=== PATIENT | female | born 1955 | race Caucasian/White ===

== ENCOUNTER 2016-12-25 14:43 | Inpatient (IN) ==
[2016-12-25] MEDS ORDERED: methylPREDNISolone 125 MG/2 ML VIAL IVP ONE (14:56)
[2016-12-25] MEDS ORDERED: 0.9 % Sodium Chloride 1,000 ML IVC ONE ×2 (14:56→15:34)
[2016-12-25] MEDS ORDERED: Ipratropium/Albuterol Neb 3 ML IH ONE (14:56)
--- NOTE | 2016-12-25 15:02 | Emergency Department Note ---
Disposition Clinical Impression: Acute exacerbation of chronic obstructive airways disease, HCAP (healthcare- associated pneumonia), ST segment changes on electrocardiogram Asthma with exacerbation Qualifiers: Asthma severity: unspecified severity Asthma persistence: persistent Qualified Code(s): J45.901 - Unspecified asthma with (acute) exacerbation Disposition: Admitted As Inpatient Condition: Fair Referrals: Frederick Lopez MD [Primary Care Provider] - Forms: ED Satisfaction Letter Time of Disposition: 16:52 General Adult HPI - General Chief complaint: ED Shortness of Breath/Dyspnea Stated complaint: [facility] Source: patient, EMS Limitations: no limitations Nursing Notes Reviewed: Yes Vital Signs Reviewed: Yes - History of Present Illness HPI Narrative: 61-year-old female past medical history of asthma, recent cessation of smoking, this emergent department with shortness of breath, coughing, wheezing that has been occurring over the last week. Patient states that she has been using her inhaler over and over again, steroids, and that this has not been improving. Patient states that she has been around other people with pneumonia, but does not specifically have any sputum production or fever. Patient states that she does not have any history of blood clots. She denies any hemoptysis, recent travel, leg swelling. Pain Scale: 0 - Related Data Home Medications Medication Instructions Recorded Confirmed Levothyroxine [Synthroid] 25 mcg PO 0630 09/28/15 12/25/16 Pregabalin [Lyrica] 100 mg PO BID 09/28/15 12/25/16 Tramadol HCl [Ultram] 100 mg PO BID 09/28/15 12/25/16 Multivitamin [Multivitamins] 1 each PO DAILY 08/21/16 12/25/16 amLODIPine [Norvasc] 10 mg PO DAILY 08/21/16 12/25/16 Albuterol Sulfate [Proair Hfa] 2 puff IH Q4H PRN 12/25/16 12/25/16 Amantadine [Symmetrel] 100 mg PO TID 12/25/16 12/25/16 Calcium Carbonate/Vitamin D3 1 each PO DAILY 12/25/16 12/25/16 [Calcium 500-Vit D3 200 Tablet] Cholecalciferol (D-3) [Vitamin D] 1,000 unit PO DAILY 12/25/16 12/25/16 Colesevelam HCl [Welchol] 3.75 gm PO BID 12/25/16 12/25/16 Guaifenesin [Mucinex] 600 mg PO BID 12/25/16 12/25/16 Ipratropium/Albuterol Neb [Duoneb] 3 ml IH Q4H PRN 12/25/16 12/25/16 [place]-3/Dha/Epa/Fish Oil [Fish Oil 1,000 mg PO DAILY 12/25/16 12/25/16 1,000 mg Softgel] Simvastatin [Zocor] 10 mg PO HS 12/25/16 12/25/16 hydroCHLOROthiazide 25 mg PO DAILY 12/25/16 12/25/16 [Hydrochlorothiazide] predniSONE [PredniSONE] See Taper PO DAILY 12/25/16 12/25/16 Allergies Allergy/AdvReac Type Severity Reaction Status Date / Time ceftriaxone [From Rocephin] Allergy Rash Verified 09/28/15 17:09 Penicillins [PCN] Allergy Rash Verified 09/28/15 17:09 All systems ED: reviewed and negative except as stated. Review of Systems: As Per HPI Constitutional: Denies: fever Cardiovascular: Denies: chest pain Respiratory: Reports: cough, dyspnea, wheezes Gastrointestinal: Denies: nausea, vomiting Integumentary: Denies: rash Neurological: Denies: headache Past Medical History - Past Medical History Medical history: Reports: asthma, hyperlipidemia, hypertension, other Surgical history: Reports: hysterectomy, other Psychiatric history: Reports: anxiety, depression - Social History Smoking Status: Former smoker Smokeless Tobacco Status: No Alcohol use: Reports: none Drug use: Reports: none Physical Exam General: Well Appearing, in no acute distress Head: autraumatic, EOMI, no conjuncitval pallor, no scleral icterus, Mouth: oral mucous membranes moist Neck: neck soft, trachea midline Chest:: Equal chest wall rise Lungs: Diffuse wheezes throughout, no respiratory distress Heart: normal heart sounds, normal rate and rhythm, Abdomen: soft, non-tender, no rigidity, no guarding, no rebdound tenderness Lower Extremities: no pedal edema, calves non-tender Integumentary: Skin warm, dry, and intact Neuro: Alert Psych: normal affect, normal mood - General Limitations: no limitations General appearance: alert Course Vital Signs Temperature 98.5 F 12/25/16 14:44 Pulse Rate 124 12/25/16 14:44 Respiratory Rate 30 12/25/16 14:44 Blood Pressure 152/84 12/25/16 14:44 O2 Sat by Pulse Oximetry 92 12/25/16 14:44 Temperature 98.5 F 12/25/16 14:44 Pulse Rate 124 12/25/16 14:44 Respiratory Rate 24 12/25/16 15:10 Blood Pressure 164/86 12/25/16 15:37 O2 Sat by Pulse Oximetry 99 12/25/16 15:10 Oxygen Delivery Oxygen Delivery Room Air Medical Decision Making - MDM Narrative Medical decision making narrative: 61-year-old female presents to emergency department with what she thinks is worsening of her asthma. At this time, we are treating her as an asthma exacerbation. We are administering 3 duo nebs, Solu-Medrol the IV, liter normal saline and she is tachycardic here. Patient is currently 92% on room air. We are going to give her some oxygen. We obtained chest x-ray, EKG, troponin as well. Patient states that a DuoNeb to have helped out, but she still seems to be in mild respiratory distress. He is still have rhonchi throughout. Patient does have a leukocytosis of of about 24,000. This is higher than previous ones. Patient is on steroids chronically, but there is a left shift which would further indicate that this could be an acute infectious process. Portable chest x-ray did not reveal any signs of pneumonia, but does appear to be some haziness especially in the right middle and lower lobes. At this time, I will begin treatment with Levaquin, vancomycin, aztreonam. I have also given her 2 g of magnesium. Patient was given 2 L of normal saline per sepsis protocol as she met SIRS criteria with a tachycardia of 124 and leukocytosis of 23.9. I discussed the plan with the patient to admit her. She agrees with her. I spoke with the hospitalist on the phone and they agree as well. Patient is currently hemodynamically stable at this time and her respiratory process has improved. Vital Signs Temperature 98.5 F 12/25/16 14:44 Pulse Rate 124 12/25/16 14:44 Respiratory Rate 30 12/25/16 14:44 Blood Pressure 152/84 12/25/16 14:44 O2 Sat by Pulse Oximetry 92 12/25/16 14:44 Temperature 98.5 F 12/25/16 14:44 Pulse Rate 124 12/25/16 14:44 Respiratory Rate 30 12/25/16 14:44 Blood Pressure 152/84 12/25/16 14:44 O2 Sat by Pulse Oximetry 92 12/25/16 14:44 Oxygen Delivery Oxygen Delivery Room Air - Medical Records Medical records reviewed: Yes I reviewed the patient's medical records. - Lab Data Lab results reviewed: Yes I reviewed the patient's lab results. Result diagrams: 12/25/16 15:03 12/25/16 15:03 Lab Results 12/25/16 12/25/16 12/25/16 Range/Units 15:03 15: 15:03 WBC 23.9 H (4.3-11.1) K/mcL RBC 5.04 H (3.82-4.97) M/mcL Hgb 14.1 (11.5-15.4) g/dL Hct 45.1 H (35.3-44.9) % MCV 89.5 (83.0-100.0) fL MCH 28.0 (28.0-33.3) pg MCHC 31.3 L (31.6-35.5) g/dL RDW 15.5 H (11.5-14.5) % Plt Count 394 (140-400) K/mcL MPV 9.9 (9.4-12.4) fL Immature Gran % 0.8 (0-4) % Seg Neutrophils % 91.2 % Lymphocytes % 6.2 % Monocytes % 1.6 % Eosinophils % 0.0 % Basophils % 0.2 % Neutrophils # 21.8 H (1.6-8.9) K/mcL Lymphocytes # 1.5 (0.6-4.6) K/mcL Monocytes # 0.4 (0.0-1.3) K/mcL Eosinophils # 0.0 (0.0-0.6) K/mcL Basophils # 0.1 (0.0-0.2) K/mcL Hypersegmented Neuts Present A (Not Present) Platelet Estimate Normal (Normal) PT (9.4-12.1) Seconds INR Sodium 142 (136-145) mEq/L Potassium 3.5 (3.5-4.5) mEq/L Chloride 106 (98-109) mEq/L Carbon Dioxide 22 (19-29) mEq/L BUN 18 (7-20) mg/dL Creatinine 0.93 (0.57-1.11) mg/dL Est GFR ( Amer) > 60 (> 60) Est GFR (Non-Af Amer) > 60 (> 60) BUN/Creatinine Ratio 19 (6-26) Glucose 170 H (70-99) mg/dL Calculated Osmolality 300 (280-300) Lactic Acid (0.5-2.2) mmol/L Calcium 10.9 H (8.6-10.8) mg/dL Phosphorus (2.3-4.7) mg/dL Magnesium (1.6-2.6) mg/dL Troponin I 0.02 (0-0.03) ng/mL B-Natriuretic Peptide (0-100) pg/mL 12/25/16 12/25/16 12/25/16 Range/Units 15:03 16:08 16:08 WBC (4.3-11.1) K/mcL RBC (3.82-4.97) M/mcL Hgb (11.5-15.4) g/dL Hct (35.3-44.9) % MCV (83.0-100.0) fL MCH (28.0-33.3) pg MCHC (31.6-35.5) g/dL RDW (11.5-14.5) % Plt Count (140-400) K/mcL MPV (9.4-12.4) fL Immature Gran % (0-4) % Seg Neutrophils % % Lymphocytes % % Monocytes % % Eosinophils % % Basophils % % Neutrophils # (1.6-8.9) K/mcL Lymphocytes # (0.6-4.6) K/mcL Monocytes # (0.0-1.3) K/mcL Eosinophils # (0.0-0.6) K/mcL Basophils # (0.0-0.2) K/mcL Hypersegmented Neuts (Not Present) Platelet Estimate (Normal) PT 9.9 (9.4-12.1) Seconds INR 0.9 Sodium (136-145) mEq/L Potassium (3.5-4.5) mEq/L Chloride (98-109) mEq/L Carbon Dioxide (19-29) mEq/L BUN (7-20) mg/dL Creatinine (0.57-1.11) mg/dL Est GFR ( Amer) (> 60) Est GFR (Non-Af Amer) (> 60) BUN/Creatinine Ratio (6-26) Glucose (70-99) mg/dL Calculated Osmolality (280-300) Lactic Acid 3.2 H (0.5-2.2) mmol/L Calcium (8.6-10.8) mg/dL Phosphorus (2.3-4.7) mg/dL Magnesium (1.6-2.6) mg/dL Troponin I (0-0.03) ng/mL B-Natriuretic Peptide 91 (0-100) pg/mL 12/25/16 Range/Units 16:08 WBC (4.3-11.1) K/mcL RBC (3.82-4.97) M/mcL Hgb (11.5-15.4) g/dL Hct (35.3-44.9) % MCV (83.0-100.0) fL MCH (28.0-33.3) pg MCHC (31.6-35.5) g/dL RDW (11.5-14.5) % Plt Count (140-400) K/mcL MPV (9.4-12.4) fL Immature Gran % (0-4) % Seg Neutrophils % % Lymphocytes % % Monocytes % % Eosinophils % % Basophils % % Neutrophils # (1.6-8.9) K/mcL Lymphocytes # (0.6-4.6) K/mcL Monocytes # (0.0-1.3) K/mcL Eosinophils # (0.0-0.6) K/mcL Basophils # (0.0-0.2) K/mcL Hypersegmented Neuts (Not Present) Platelet Estimate (Normal) PT (9.4-12.1) Seconds INR Sodium (136-145) mEq/L Potassium (3.5-4.5) mEq/L Chloride (98-109) mEq/L Carbon Dioxide (19-29) mEq/L BUN (7-20) mg/dL Creatinine (0.57-1.11) mg/dL Est GFR ( Amer) (> 60) Est GFR (Non-Af Amer) (> 60) BUN/Creatinine Ratio (6-26) Glucose (70-99) mg/dL Calculated Osmolality (280-300) Lactic Acid (0.5-2.2) mmol/L Calcium (8.6-10.8) mg/dL Phosphorus 2.4 (2.3-4.7) mg/dL Magnesium 2.0 (1.6-2.6) mg/dL Troponin I (0-0.03) ng/mL B-Natriuretic Peptide (0-100) pg/mL - Radiology Data Radiology results reviewed: Yes I reviewed the patient's radiology results. - EKG Data EKG #1 EKG attestation: Yes I reviewed and interpreted this EKG. EKG results narrative: 15:08 Ventricular rate 106 bpm, WI interval 149 ms, QRS duration 97 ms, QT 366 ms, QTC 428 ms, left axis deviation. Sinus tachycardia with a ventricular rate of 106 bpm. There is [address] segment depression in leads 2, V5, V6 with T-wave inversions. This is new in comparison with a previous study performed on July 06, 2016.
[2016-12-25 15:11] LABS: Basophils # 0.1 K/mcL (0.0-0.2); Basophils % 0.2 %; Hematocrit 45.1 % (35.3-44.9); Hemoglobin 14.1 g/dL (11.5-15.4); Immature Granulocytes % 0.8 % (0-4); Lymphocytes # 1.5 K/mcL (0.6-4.6); Lymphocytes % 6.2 %; Mean Corpuscular HGB Conc 31.3 g/dL (31.6-35.5); Mean Corpuscular Volume 89.5 fL (83.0-100.0); Mean Platelet Volume 9.9 fL (9.4-12.4); Monocytes # 0.4 K/mcL (0.0-1.3); Monocytes % 1.6 %; Neutrophils # 21.8 K/mcL (1.6-8.9); Platelet Count 394 K/mcL (140-400); Red Blood Count 5.04 M/mcL (3.82-4.97); Red Cell Distribution Width 15.5 % (11.5-14.5); Segmented Neutrophils % 91.2 %
[2016-12-25 15:24] LABS: BUN/Creatinine Ratio 19 (6-26); Blood Urea Nitrogen 18 mg/dL (7-20); Calcium 10.9 mg/dL (8.6-10.8); Carbon Dioxide 22 mEq/L (19-29); Chloride 106 mEq/L (98-109); Glucose 170 mg/dL (70-99); Osmolality,Calculated 300 (280-300); Potassium 3.5 mEq/L (3.5-4.5); Sodium 142 mEq/L (136-145); eGFR For African Americans > 60 (> 60); eGFR For Non-African Americans > 60 (> 60)
[2016-12-25] MEDS ORDERED: Vancomycin 1,000 MG in D5% in Water 250 ML IVPB ONE (15:36)
[2016-12-25] MEDS ORDERED: Levofloxacin 750 MG/150 ML 750 MG/150 ML BAG IVPB ONE (15:36)
[2016-12-25] MEDS ORDERED: Aztreonam 2,000 MG in Water for inj. (sterile) 20 ML IVP ONE (15:36)
--- NOTE | 2016-12-25 15:51 | Emergency Department Note ---
START Narrative - START START: I examined this patient and my medical decision-making was reviewed with the Resident Physician. I agree with the documented findings, disposition and treatment plan as described except to the extent set forth below. 61 year old female presnts to the eD iwith complaints of bronchitic cough and is trying to move sputum up but it is stuck inher throat. 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 Initillyl she was dyspniec with a pulse ox of 92% on RA and states that she feels like she has wheezes. on lung examination bronchospams are present when she is coughin. She has been a 2-3 courses of steroids at home over the past three weeks and it is not improving. She has a WBC of 25, a HRo f 120s, meets sepsis crtieria. She denie fevers. WE will treat as though it was HCAP and admit to medicine. dounebs/solumedrol has been given.
[2016-12-25] MEDS ORDERED: Ipratropium/Albuterol Neb 3 ML ONE (16:02)
[2016-12-25 16:04] LABS: Hypersegmented Neutrophils Present (Not Present); Platelet Estimate Normal (Normal)
[2016-12-25 16:24] LABS: INR 0.9; Prothrombin Time 9.9 Seconds (9.4-12.1)
[2016-12-25 16:30] LABS: Phosphorous 2.4 mg/dL (2.3-4.7)
[2016-12-25] MEDS ORDERED: *HR* LORazepam 2 MG/ML VIAL IM ONE (16:43)
[2016-12-25 17:42] LABS: Bilirubin,Urine Negative (Negative); Blood,Urine Trace (Negative); Clarity,Urine Clear (Clear); Color,Urine Yellow (Yellow); Glucose,Urine (UA) Normal (Normal); Ketones,Urine Negative (Negative); Leukocyte Esterase,Urine Negative (Negative); Nitrite,Urine Negative (Negative); Protein,Urine Negative (Neg-Trace); Urobilinogen,Urine Normal (Normal)
[2016-12-25 17:45] LABS: Bacteria,Urine None Seen per hpf (None-Few); Hyaline Casts,Urine None Seen per lpf (None-Few); RBC,Urine 0-3 per hpf (0-3); Squamous Epithelial Cell,Urine Many per lpf (None-Few); WBC,Urine 0-3 per hpf (0-3)
[2016-12-25] MEDS ORDERED: Ondansetron 4 MG/2 ML VIAL IVP PRN (20:43)
[2016-12-25] MEDS ORDERED: Acetaminophen 325 MG TABLET PO PRN (20:43)
[2016-12-25] MEDS ORDERED: Naloxone 0.4 MG/ML INJ IVP PRN (20:43)
[2016-12-25] MEDS ORDERED: MethylPREDNISolone 40 MG/ML VIAL IVP SCH ×2 (20:45→21:00)
[2016-12-25] MEDS ORDERED: Albuterol 2.5 MG/3 ML NEBULIZER IH PRN (20:45)
--- NOTE | 2016-12-25 20:54 | Internal Med History&Physical ---
<Fernando Hughes - Last Filed: 12/25/16 21:56> Date of Encounter: 12/25/16 Time of Encounter: 20:51 Assessment and Plan (1) Acute respiratory distress Current visit: Yes Status: Acute - Likely secondary to asthma exacerbation vs undiagnosed COPD exacerbation - Failed outpatient treatment of Z-isra - Pt improved from in ED on methylprednisolone, supplimental O2 - Will continue steroids, O2, duonebs. Continue levaquin started in ED due to possible bronchitis vs PNA given SIRS with left shift. - Less likely PNA given afebrile and no productive cough (2) Asthma with exacerbation Current visit: Yes Status: Acute Assessment and plan as above Qualifiers: Asthma severity: unspecified severity Asthma persistence: persistent Qualified Code(s): J45.901 - Unspecified asthma with (acute) exacerbation (3) Hypertension Current visit: Yes Status: Chronic Mildly elevated BP on presentation - Possible elevated due to respiratory distress - Will start home meds and monitor Qualifiers: Hypertension type: essential hypertension Qualified Code(s): I10 - Essential (primary) hypertension (4) Fibromyalgia Current visit: Yes Status: Chronic - Stable. - Continue home meds (5) DVT prophylaxis Current visit: Yes Status: Acute -heparin 5000 units q12 Internal Medicine - H&P: HPI Chief complaint: SOB Admitted From: Emergency Dept Plans for Post Hospital Care: Home History of present illness: Ms. Marcano is a 61 year old female who presents him respond to complain of shortness of breath times approximately one week. She states that she has progressive symptoms and is now short of breath at both rest and with exertion. She has a history of asthma, however has not been hospitalized for any breathing troubles. She has been using her home albuterol inhaler and DuoNeb nebulizer with minimal relief of symptoms. She denies any history of COPD however is a former smoker. She states she does have a nonproductive cough beginning yesterday as well as chest tightness, and denies any symptoms of fevers, chills, chest pain, nausea, vomiting, leg swelling. She does admit to episodes of acute exacerbation of her asthma in the spring and in the fall which her inhalers normally relieve. She does take daily prednisone 10 mg which she got from her primary care physician earlier this week as well as a Z- Isra which did not help. In the emergency department, vital signs significant for tachycardia at 124, respiratory rate of 30, blood pressure elevated at 152/84. Labs show a elevated WBC of 24, lactic acid 3.2. Chest x-ray emergency department showed possible hyperinflation due to COPD, however was negative for acute process. Past Med Surg Social Fam HX - Past Medical History Medical history: asthma, hyperlipidemia, hypertension, other Psychiatric history: anxiety, depression - Past Surgical History Surgical History: hysterectomy, other - Social History Smoking Status: Former smoker Smokeless Tobacco Status: No Alcohol use: none Drug use: none - Family History Mother Living Status: Still Living Hx Family Cardiac Disorders: No Hx Family Respiratory Disorders: Yes Hx Family Cancer: No Hx Family Endocrine Disorder: Yes Hx Family Neuromuscular Disorders: Yes Hx Family Neurologic Disorders: Yes Internal Medicine - H&P: Meds Levothyroxine [Synthroid] 25 mcg PO 30 09/28/15 [History] Pregabalin [Lyrica] 100 mg PO BID 09/28/15 [History] Tramadol HCl [Ultram] 100 mg PO BID 09/28/15 [History] Multivitamin [Multivitamins] 1 each PO DAILY 08/21/16 [History] amLODIPine [Norvasc] 10 mg PO DAILY 08/21/16 [History] Albuterol Sulfate [Proair Hfa] 2 puff IH Q4H PRN 12/25/16 [History] Amantadine [Symmetrel] 100 mg PO TID 12/25/16 [History] Calcium Carbonate/Vitamin D3 [Calcium 500-Vit D3 200 Tablet] 1 each PO DAILY 05/08 [History] Cholecalciferol (D-3) [Vitamin D] 1,000 unit PO DAILY 12/25/16 [History] Colesevelam HCl [Welchol] 3.75 gm PO BID 12/25/16 [History] DiphenhydraMINE [Benadryl] 12.5 mg PO HS PRN 12/25/16 [History] Guaifenesin [Mucinex] 600 mg PO BID 12/25/16 [History] Ipratropium/Albuterol Neb [Duoneb] 3 ml IH Q4H PRN 12/25/16 [History] [place]-3/Dha/Epa/Fish Oil [Fish Oil 1,000 mg Softgel] 1,000 mg PO DAILY 12/25/16 [History] Simvastatin [Zocor] 10 mg PO HS 12/25/16 [History] hydroCHLOROthiazide [Hydrochlorothiazide] 25 mg PO DAILY 12/25/16 [History] predniSONE [PredniSONE] See Taper PO DAILY 12/25/16 [History] 3 Allergy/AdvReac Type Severity Reaction Status Date / Time ceftriaxone [From Rocephin] Allergy Rash Verified 09/28/15 17:09 Penicillins [PCN] Allergy Rash Verified 09/28/15 17:09 All Systems PM: A 10-system review of systems was performed and is negative for pertinent findings except as documented above in the HPI. - Constitutional Constitutional: no chills, no excessive sweating, no fatigue, no fever(s), no weakness - Cardiovascular Cardiovascular ROS IM: dyspnea, dyspnea on exertion, no chest pain, no diaphoresis, no edema, no lightheadedness, no palpitations - Respiratory Respiratory: cough, dyspnea, dyspnea on exertion, wheezing - Gastrointestinal Gastrointestinal: no abdominal pain, no constipation, no diarrhea, no nausea, no vomiting - Musculoskeletal Musculoskeletal ROS IM: no numbness, no tingling - Neurological Neurological ROS: no numbness, no tingling, no weakness - Constitutional Vitals: Temp Pulse Resp BP Pulse Ox 97.5 F L 22 98 140/87 100 12/25/16 19:01 12/25/16 19:01 12/25/16 19:01 12/25/16 19:01 12/25/16 16:52 Exam: Gen.: Vitals noted. No acute distress. AAOx3. Breathing comfortably and talking in full sentences on 3 L of oxygen. HEENT: oropharynx clear, Normocephalic, atraumatic. Moderately dry mucous membranes Neck: Supple. No adenopathy. Cardiac: RRR, no murmur, +S1/S2 Pulmonary: mild wheezing on right, audible wheezing without auscultation. equal chest expansion Abdomen: soft, nontender, BS noted, no guarding MSK: ROM intact, no joint swelling noted Extremities: no BLE edema, nontender calf, no cyanosis or clubbing. Extensive well-healing scars on right arm Neuro: A&Ox3, moves all extremities, no focal deficits Psych: Appropriate mood and behavior Internal Med - H&P Results - Labs CBC & Chem 7: 12/25/16 15:03 12/25/16 15:03 Labs: Urine 12/25/16 Range/Units 17:00 Urine Color Yellow (Yellow) Urine Clarity Clear (Clear) Urine pH 6.0 (5.0-8.0) pH Units Ur Specific [place] 1.020 (1.010-1.025) Urine Protein Negative (Neg-Trace) mg/dL Urine Glucose (UA) Normal (Normal) mg/dL <Mark Lala H - Last Filed: 12/25/16 22:44> Date of Encounter: 12/25/16 Internal Medicine - H&P: HPI History of present illness: Ms. Marcano is a 61 year old female All Systems PM: A 10-system review of systems was performed and is negative for pertinent findings except as documented above in the HPI. - Constitutional Vitals: Temp Pulse Resp BP Pulse Ox 97.5 F L 22 20 140/87 100 12/25/16 19:01 12/25/16 19:01 12/25/16 22:25 12/25/16 19:01 12/25/16 22:25 Internal Med - H&P Results - Labs CBC & Chem 7: 12/25/16 15:03 12/25/16 15:03 Labs: Urine 12/25/16 Range/Units 17:00 Urine Color Yellow (Yellow) Urine Clarity Clear (Clear) Urine pH 6.0 (5.0-8.0) pH Units Ur Specific [place] 1.020 (1.010-1.025) Urine Protein Negative (Neg-Trace) mg/dL Urine Glucose (UA) Normal (Normal) mg/dL - Attending Attestation Saturation of oxygen dropped to 85% while going to the bathroom. The patient was a smoker in the past Acute hypoxic respiratory failure secondary to possible acute COPD exacerbation sepsis due to acute bacterial bronchitis Continue Levaquin, Solu-Medrol, duo nebs and oxygen therapy We will require PFTs in 4-6 weeks. Leukocytosis Time spent on this admission 40 minutes I examined this patient and my medical decision-making was reviewed with the Resident Physician. I agree with the documented findings, disposition and treatment plan as described except to the extent set forth below.
[2016-12-25] MEDS: Pregabalin 50 MG CAPSULE PO SCH (22:01)
[2016-12-25] MEDS: MethylPREDNISolone 40 MG/ML VIAL IVP SCH (22:01)
[2016-12-25] MEDS: traMADol 50 MG TABLET PO SCH ×2 (22:15→22:50)
[2016-12-25] MEDS: Ipratropium/Albuterol Neb 3 ML IH PRN (22:25)
[2016-12-25] MEDS: Beclomethasone 40mcg MDI IH SCH (22:25)
[2016-12-26 01:09] LABS: Basophils % 0.1 %; Hematocrit 39.1 % (35.3-44.9); Immature Granulocytes % 1.4 % (0-4); Lymphocytes # 1.1 K/mcL (0.6-4.6); Lymphocytes % 5.1 %; Mean Corpuscular HGB Conc 31.7 g/dL (31.6-35.5); Mean Corpuscular Hemoglobin 28.4 pg (28.0-33.3); Mean Corpuscular Volume 89.5 fL (83.0-100.0); Mean Platelet Volume 10.4 fL (9.4-12.4); Monocytes # 0.3 K/mcL (0.0-1.3); Monocytes % 1.3 %; Neutrophils # 19.6 K/mcL (1.6-8.9); Platelet Count 333 K/mcL (140-400); Red Blood Count 4.37 M/mcL (3.82-4.97); Red Cell Distribution Width 15.6 % (11.5-14.5); Segmented Neutrophils % 92.1 %
[2016-12-26 01:12] LABS: Hemoglobin 12.4 g/dL (11.5-15.4)
[2016-12-26 01:23] LABS: BUN/Creatinine Ratio 22 (6-26); Blood Urea Nitrogen 19 mg/dL (7-20); Carbon Dioxide 23 mEq/L (19-29); Chloride 107 mEq/L (98-109); Glucose 219 mg/dL (70-99); Osmolality,Calculated 303 (280-300); Sodium 142 mEq/L (136-145); eGFR For African Americans > 60 (> 60); eGFR For Non-African Americans > 60 (> 60)
[2016-12-26] MEDS: MethylPREDNISolone 40 MG/ML VIAL IVP SCH ×3 (06:12→19:54)
[2016-12-26] MEDS: *HR* Heparin 5,000 UNIT/ML VIAL SQ SCH ×2 (06:12→18:04)
[2016-12-26] MEDS: Levothyroxine 25 MCG TABLET PO SCH (06:12)
[2016-12-26] MEDS: *HR* HYDROcodone/Acet 5/325 mg TABLET PO PRN ×2 (08:08→18:03)
[2016-12-26] MEDS: Pregabalin 50 MG CAPSULE PO SCH ×2 (08:09→19:52)
[2016-12-26] MEDS: hydroCHLOROthiazide 25 MG TABLET PO SCH (08:10)
[2016-12-26] MEDS: Levofloxacin 750 MG/150 ML 750 MG/150 ML BAG IVPB SCH (08:10)
[2016-12-26] MEDS: Beclomethasone 40mcg MDI IH SCH ×2 (08:28→20:10)
[2016-12-26] MEDS: Ipratropium/Albuterol Neb 3 ML IH PRN ×3 (08:28→20:11)
[2016-12-26] MEDS: traMADol 50 MG TABLET PO SCH ×2 (11:19→19:52)
[2016-12-26] MEDS: amLODIPine 5 MG TABLET PO SCH (11:21)
--- NOTE | 2016-12-26 17:11 | Internal Med Progress Note ---
Date of Encounter: 12/26/16 Time of Encounter: 17:09 - Assessment and plan (1) Hypokalemia Current Visit: Yes Status: Acute (2) Hyperglycemia Current Visit: Yes Status: Acute (3) Acute exacerbation of chronic obstructive airways disease Current Visit: Yes Status: Acute (4) Asthma with exacerbation Current Visit: Yes Status: Acute Qualifiers: Asthma severity: unspecified severity Asthma persistence: persistent Qualified Code(s): J45.901 - Unspecified asthma with (acute) exacerbation - Time Spent With Patient Aerosol treatment every 4 hour, increase Mucinex 1200 twice a day, continue steroids, incentive spirometry, replace potassium, check phosphorus, keep magnesium more than 2. In view of her constipation we will add laxative. Continue DVT prophylaxis continue current antibiotic, will add Augmentin . Patient had severe shortness of breath and tachypnea after weaning of oxygen could not tolerate weaning off oxygen even her oxygen saturation was up to 95% dyspnea at rest off oxygen 25 - 35 minutes - Subjective Interval history: Patient continued to have shortness of breath but better than yesterday. No dyspnea at rest now. Patient could not tolerate weaning off oxygen. Continue to have cough. Patient is complaining of constipation - Constitutional Vitals: Temp Pulse Resp BP Pulse Ox 98.2 F 84 16 115/61 96 12/26/16 15:08 12/26/16 15:08 12/26/16 15:20 12/26/16 15:08 12/26/16 15:20 - Head Head exam: Present: atraumatic, normocephalic - Neck Neck exam general surgery: Present: supple, trachea midline. Absent: lymphadenopathy - Respiratory Respiratory exam: Present: decreased breath sounds (Markedly diminished breathing sounds bilateral lung bases), prolonged expiratory phase, wheezes. Absent: accessory muscle use, rales, rhonchi - Cardiovascular Cardiovascular exam: Present: RRR, +S1, +S2. Absent: diastolic murmur, gallop, rubs, systolic murmur - GI/Abdominal GI/Abdominal exam: Present: normal bowel sounds, soft, tenderness (Mild diffuse abdominal tenderness more in), no peritoneal signs. Absent: distended - Extremities Exam Extremities exam: Present: warm, radial pulses palpable and symmetrical. Absent : calf tenderness ( suprapubic area), cyanotic, pedal edema - Neurological Exam Neurological exam: Present: CN II-XII intact, oriented X3, no focal deficits. Absent: pronater drift, facial droop, speech deficit Internal Medicine: Result - Labs CBC & Chem 7: 12/26/16 00:50 12/26/16 00:50 Labs: Short CBC 12/26/16 Range/Units 00:50 WBC 21.3 H (4.3-11.1) K/mcL Hgb 12.4 D (11.5-15.4) g/dL Hct 39.1 (35.3-44.9) % Plt Count 333 (140-400) K/mcL Neutrophils # 19.6 H (1.6-8.9) K/mcL BMP 12/26/16 00:50 Sodium 142 Potassium 3.0 L Chloride 107 Carbon Dioxide 23 BUN 19 Creatinine 0.85 Glucose 219 H Calcium 10.0 Urine 12/25/16 Range/Units 17:00 Urine Color Yellow (Yellow) Urine Clarity Clear (Clear) Urine pH 6.0 (5.0-8.0) pH Units Ur Specific [place] 1.020 (1.010-1.025) Urine Protein Negative (Neg-Trace) mg/dL Urine Glucose (UA) Normal (Normal) mg/dL - ABG Interpretation ABG results: PT/INR, D-dimer PT 9.9 Seconds (9.4-12.1) 12/25/16 16:08 Consult Discharge Plan - Plan Referrals: Frederick Lopez MD [Primary Care Provider] -
[2016-12-26] MEDS ORDERED: Clindamycin 900 MG/50 ML 900 MG/50 ML IV.SOLN IVPB ONE (17:23)
[2016-12-26] MEDS ORDERED: Sennosides/Docusate Sodium TABLET PO PRN (17:29)
[2016-12-26] MEDS: Insulin LISPRO 300 UNITS/3 ML VIAL SQ SCH (18:02)
[2016-12-26] MEDS: Thiamine (B-1) 100 MG TABLET PO SCH (18:03)
[2016-12-26] MEDS: Lactobacillus 1 EACH CAP.SPRINK PO SCH (18:03)
[2016-12-26] MEDS ORDERED: Potassium Chloride Elixir 20 MEQ/15 ML UDC PO SCH (21:00)
[2016-12-27] MEDS: Clindamycin 300 MG in D5% in Water 50 ML IVPB SCH ×3 (00:36→16:05)
[2016-12-27 03:26] LABS: Basophils % 0.1 %; Hematocrit 36.7 % (35.3-44.9); Hemoglobin 11.9 g/dL (11.5-15.4); Immature Granulocytes % 2.9 % (0-4); Mean Corpuscular HGB Conc 32.4 g/dL (31.6-35.5); Mean Corpuscular Hemoglobin 28.5 pg (28.0-33.3); Mean Platelet Volume 10.3 fL (9.4-12.4); Monocytes # 0.6 K/mcL (0.0-1.3); Monocytes % 2.3 %; Neutrophils # 21.4 K/mcL (1.6-8.9); Platelet Count 340 K/mcL (140-400); Red Blood Count 4.17 M/mcL (3.82-4.97); Red Cell Distribution Width 15.8 % (11.5-14.5); Segmented Neutrophils % 88.7 %
[2016-12-27 03:35] LABS: Lymphocytes # 1.5 K/mcL (0.6-4.6)
[2016-12-27 03:39] LABS: BUN/Creatinine Ratio 30 (6-26); Blood Urea Nitrogen 26 mg/dL (7-20); Calcium 9.6 mg/dL (8.6-10.8); Carbon Dioxide 27 mEq/L (19-29); Chloride 107 mEq/L (98-109); Glucose 133 mg/dL (70-99); Osmolality,Calculated 305 (280-300); Sodium 144 mEq/L (136-145); eGFR For African Americans > 60 (> 60); eGFR For Non-African Americans > 60 (> 60)
[2016-12-27 03:40] LABS: Magnesium 2.7 mg/dL (1.6-2.6); Phosphorous 3.8 mg/dL (2.3-4.7); Potassium 4.6 mEq/L (3.5-4.5)
[2016-12-27 03:57] LABS: Platelet Estimate Normal (Normal)
[2016-12-27] MEDS: MethylPREDNISolone 40 MG/ML VIAL IVP SCH ×3 (05:52→20:08)
[2016-12-27] MEDS: *HR* Heparin 5,000 UNIT/ML VIAL SQ SCH ×2 (05:52→19:29)
[2016-12-27] MEDS: Levothyroxine 25 MCG TABLET PO SCH (05:53)
[2016-12-27] MEDS: Beclomethasone 40mcg MDI IH SCH ×2 (08:15→19:50)
[2016-12-27] MEDS: Ipratropium/Albuterol Neb 3 ML IH SCH ×4 (08:17→19:50)
[2016-12-27] MEDS: Lactobacillus 1 EACH CAP.SPRINK PO SCH (08:36)
[2016-12-27] MEDS: traMADol 50 MG TABLET PO SCH ×2 (08:37→19:29)
[2016-12-27] MEDS: amLODIPine 5 MG TABLET PO SCH (08:37)
[2016-12-27] MEDS: Pregabalin 50 MG CAPSULE PO SCH ×2 (08:37→20:08)
[2016-12-27] MEDS: Levofloxacin 750 MG/150 ML 750 MG/150 ML BAG IVPB SCH (08:38)
[2016-12-27] MEDS: Insulin LISPRO 300 UNITS/3 ML VIAL SQ SCH ×3 (08:38→16:35)
[2016-12-27] MEDS: hydroCHLOROthiazide 25 MG TABLET PO SCH (08:39)
[2016-12-27 09:04] LABS: Phosphorous 2.8 mg/dL (2.3-4.7)
--- NOTE | 2016-12-27 10:21 | Internal Med Progress Note ---
Date of Encounter: 12/27/16 Time of Encounter: 09:50 - Assessment and plan (1) Hypokalemia Current Visit: Yes Status: Acute (2) Hyperglycemia Current Visit: Yes Status: Acute (3) Acute exacerbation of chronic obstructive airways disease Current Visit: Yes Status: Acute (4) Asthma with exacerbation Current Visit: Yes Status: Acute - Subjective Interval history: Patient continued to have shortness of breath and dry cough. Dyspnea on mild exertion. Patient has history of tobacco use more than 90ppy. Significant family history of coronary artery disease - Constitutional Vitals: Temp Pulse Resp BP Pulse Ox 98.1 F 78 20 112/66 95 12/27/16 07:26 12/27/16 07:26 12/27/16 08:02 12/27/16 07:26 12/27/16 08:02 General appearance: Present: no acute distress - Head Head exam: Present: atraumatic, normocephalic - Eye Eye exam: Present: conjuntiva pink, sclera anicteric - Neck Neck exam general surgery: Present: supple, trachea midline. Absent: lymphadenopathy - Respiratory Respiratory exam: Present: decreased breath sounds, prolonged expiratory phase. Absent: accessory muscle use, rales, rhonchi, wheezes - Cardiovascular Cardiovascular exam: Present: RRR, +S1, +S2. Absent: diastolic murmur, gallop, rubs, systolic murmur - GI/Abdominal GI/Abdominal exam: Present: normal bowel sounds, soft, no peritoneal signs. Absent: distended, tenderness - Extremities Exam Extremities exam: Present: warm, radial pulses palpable and symmetrical. Absent : calf tenderness, cyanotic, pedal edema Internal Medicine: Result - Labs CBC & Chem 7: 12/27/16 03:06 12/27/16 03:06 Labs: Short CBC 12/27/16 Range/Units 03:06 WBC 24.1 H (4.3-11.1) K/mcL Hgb 11.9 (11.5-15.4) g/dL Hct 36.7 (35.3-44.9) % Plt Count 340 (140-400) K/mcL Neutrophils # 21.4 H (1.6-8.9) K/mcL BMP 12/27/16 03:06 Sodium 144 Potassium 4.6 H D Chloride 107 Carbon Dioxide 27 BUN 26 H Creatinine 0.88 Glucose 133 H Calcium 9.6 - ABG Interpretation ABG results: PT/INR, D-dimer PT 9.9 Seconds (9.4-12.1) 12/25/16 16:08 Consult Discharge Plan - Plan Referrals: Frederick Lopez MD [Primary Care Provider] -
[2016-12-27] MEDS: Thiamine (B-1) 100 MG TABLET PO SCH (16:04)
[2016-12-27] MEDS ORDERED: Vancomycin 1,000 MG in D5% in Water 250 ML IVPB SCH (20:00)
[2016-12-27] MEDS: Vancomycin 1,000 MG in D5% in Water 250 ML IVPB SCH (23:32)
[2016-12-28] MEDS: Ipratropium/Albuterol Neb 3 ML IH SCH ×7 (00:04→23:09)
[2016-12-28] MEDS ORDERED: Regadenoson 0.4 MG/5 ML SYRINGE IVP ONE (05:43)
[2016-12-28] MEDS: *HR* Heparin 5,000 UNIT/ML VIAL SQ SCH ×2 (06:09→17:50)
[2016-12-28] MEDS: Levothyroxine 25 MCG TABLET PO SCH (06:09)
[2016-12-28] MEDS: MethylPREDNISolone 40 MG/ML VIAL IVP SCH ×3 (06:09→20:59)
--- NOTE | 2016-12-28 06:41 | Electrocardiograph Report ---
[place] [id number] Test Date: 2016-12-25 Pat Name: Lawanda Marcano Department: 102 Room: 2NE21 Gender: F U.[place]. Senator: Stephan : 1955 Requested By: Jarad Enriquez Order Number: [id number] Reading MD: Aryan Zelaya DO Measurements Intervals [place] Rate: 106 P: 75 VA: 149 QRS: -42 QRSD: 97 T: 239 QT: 366 QTc: 428 Interpretive Statements SINUS TACHYCARDIA MARKED LEFT AXIS DEVIATION ST DEVIATION AND MODERATE T-WAVE ABNORMALITY, CONSIDER ANTEROLATERAL ISCHEMIA ST DEVIATION AND MODERATE T-WAVE ABNORMALITY, CONSIDER INFERIOR ISCHEMIA Electronically Signed On 12-28-2016 6:39:44 EST by Aryan Zelaya DO
[2016-12-28] MEDS: traMADol 50 MG TABLET PO SCH ×2 (10:02→20:59)
[2016-12-28] MEDS: Lactobacillus 1 EACH CAP.SPRINK PO SCH (10:03)
[2016-12-28] MEDS: Thiamine (B-1) 100 MG TABLET PO SCH (10:03)
[2016-12-28] MEDS: amLODIPine 5 MG TABLET PO SCH (10:03)
[2016-12-28] MEDS: Pregabalin 50 MG CAPSULE PO SCH ×2 (10:03→20:57)
[2016-12-28] MEDS: hydroCHLOROthiazide 25 MG TABLET PO SCH (10:04)
[2016-12-28] MEDS: Insulin LISPRO 300 UNITS/3 ML VIAL SQ SCH ×3 (10:04→17:55)
[2016-12-28] MEDS: Levofloxacin 750 MG/150 ML 750 MG/150 ML BAG IVPB SCH (10:04)
[2016-12-28 10:39] LABS: Basophils # 0.1 K/mcL (0.0-0.2); Basophils % 0.3 %; Hematocrit 38.2 % (35.3-44.9); Hemoglobin 12.7 g/dL (11.5-15.4); Immature Granulocytes % 4.5 % (0-4); Lymphocytes # 1.6 K/mcL (0.6-4.6); Lymphocytes % 7.4 %; Mean Corpuscular HGB Conc 33.2 g/dL (31.6-35.5); Mean Corpuscular Hemoglobin 28.5 pg (28.0-33.3); Mean Corpuscular Volume 85.8 fL (83.0-100.0); Mean Platelet Volume 10.9 fL (9.4-12.4); Monocytes # 0.6 K/mcL (0.0-1.3); Monocytes % 2.9 %; Nucleated Red Blood Cells 0.1 /100 WBC (0); Platelet Count 341 K/mcL (140-400); Red Blood Count 4.45 M/mcL (3.82-4.97); Red Cell Distribution Width 15.2 % (11.5-14.5); Segmented Neutrophils % 84.9 %
[2016-12-28 10:52] LABS: BUN/Creatinine Ratio 39 (6-26); Blood Urea Nitrogen 27 mg/dL (7-20); Calcium 9.6 mg/dL (8.6-10.8); Carbon Dioxide 23 mEq/L (19-29); Chloride 106 mEq/L (98-109); Glucose 109 mg/dL (70-99); Osmolality,Calculated 300 (280-300); Sodium 142 mEq/L (136-145); eGFR For African Americans > 60 (> 60); eGFR For Non-African Americans > 60 (> 60)
[2016-12-28] MEDS: Beclomethasone 40mcg MDI IH SCH ×2 (10:53→19:44)
[2016-12-28] MEDS: Vancomycin 1,000 MG in D5% in Water 250 ML IVPB SCH ×2 (11:37→21:00)
[2016-12-28] MEDS ORDERED: Aminoglycoside Consult 1 EACH MC ONE (18:15)
--- NOTE | 2016-12-28 18:47 | Internal Med Progress Note ---
Date of Encounter: 12/28/16 Time of Encounter: 17:00 - Assessment and plan (1) Hypokalemia Current Visit: Yes Status: Acute (2) Hyperglycemia Current Visit: Yes Status: Acute (3) Acute exacerbation of chronic obstructive airways disease Current Visit: Yes Status: Acute (4) Asthma with exacerbation Current Visit: Yes Status: Acute Qualifiers: Asthma severity: unspecified severity Asthma persistence: persistent Qualified Code(s): J45.901 - Unspecified asthma with (acute) exacerbation - Time Spent With Patient Continue current medication, counseling patient again about incentive spirometry and deep breathing, continue IV antibiotic, awaiting final culture, cardiac echo normal ejection fraction, cardiac stress test no evidence of ischemia, continue weaning off oxygen as tolerated. 6 minute walk test tomorrow if positive patient needs home oxygen . 25 - 35 minutes - Subjective Interval history: Patient continued to have shortness of breath and wheezing is improving day by day. Patient denies any chest pain. Patient denies any fever or chills - Constitutional Vitals: Temp Pulse Resp BP Pulse Ox 97.5 F L 86 16 125/72 94 12/28/16 09:24 12/28/16 15:00 12/28/16 16:08 12/28/16 15:00 12/28/16 16:08 General appearance: Present: no acute distress - Head Head exam: Present: atraumatic, normocephalic - Neck Neck exam general surgery: Present: supple, trachea midline. Absent: lymphadenopathy - Respiratory Respiratory exam: Present: decreased breath sounds, prolonged expiratory phase. Absent: accessory muscle use, rhonchi, wheezes - Cardiovascular Cardiovascular exam: Present: RRR, +S1, +S2. Absent: diastolic murmur, gallop, rubs, systolic murmur - Extremities Exam Extremities exam: Present: warm. Absent: calf tenderness, cyanotic, pedal edema - Neurological Exam Neurological exam: Present: CN II-XII intact, no focal deficits. Absent: pronater drift, facial droop, speech deficit Internal Medicine: Result - Labs CBC & Chem 7: 12/28/16 10:26 12/28/16 10:26 Labs: Short CBC 12/28/16 Range/Units 10:26 WBC 21.2 H (4.3-11.1) K/mcL Hgb 12.7 (11.5-15.4) g/dL Hct 38.2 (35.3-44.9) % Plt Count 341 (140-400) K/mcL Neutrophils # 18.0 H (1.6-8.9) K/mcL BMP 12/28/16 10:26 Sodium 142 Potassium 4.0 Chloride 106 Carbon Dioxide 23 BUN 27 H Creatinine 0.70 Glucose 109 H Calcium 9.6 - ABG Interpretation ABG results: PT/INR, D-dimer PT 9.9 Seconds (9.4-12.1) 12/25/16 16:08 - Impressions Impressions Chest X-Ray 12/27/16 00:00 IMPRESSION: No acute findings. No evidence of pneumonia. D/ / Kinsey Kamara MD / Kinsey Kamara MD Interpreting Provider: Kinsey Kamara MD Echocardiogram 12/28/16 10:15 Impressions: LVEF 60%. Mild left ventricular diastolic dysfunction. Normal right ventricular structure and function. No significant valvular dysfunction. No pulmonary hypertension. Left Ventricular Wall Motion: Rest Echo Findings All wall segments showed normal motion. Findings: Study Quality * Technically adequate exam. ECG Findings * Normal sinus rhythm. Left Ventricle * Normal LV chamber size, wall thickness and function. * Mild left ventricular diastolic dysfunction. * LVEF 60%. Right Ventricle * Normal right ventricular structure and function. Left Atrium * Normal left atrial size. Right Atrium * Normal right atrial size. Aortic Valve * No aortic regurgitation. * Trileaflet aortic valve. * No aortic stenosis. Mitral Valve * No mitral regurgitation. * Normal mitral valve structure. * No mitral stenosis. Tricuspid Valve * No tricuspid regurgitation. * Estimated RA pressure is 3 mmHg. * Estimated RVSP is 14 mmHg. * No pulmonary hypertension. * Normal tricuspid valve structure. Pulmonic Valve * Pulmonic valve is not well visualized. * No pulmonic stenosis. * No pulmonic regurgitation. Pulmonary Artery * Pulmonary artery not well visualized. Aorta * Normally sized aortic root. Pericardium * There is no pericardial effusion present. Interatrial Septum * No evidence of PFO by color Doppler. IVC * Normal IVC dimensions and inspiratory collapse. Consult Discharge Plan - Plan Referrals: Frederick Lopez MD [Primary Care Provider] -
[2016-12-29] MEDS: Ipratropium/Albuterol Neb 3 ML IH SCH ×4 (03:44→17:27)
[2016-12-29] MEDS: MethylPREDNISolone 40 MG/ML VIAL IVP SCH ×2 (05:27→12:57)
[2016-12-29] MEDS: *HR* Heparin 5,000 UNIT/ML VIAL SQ SCH (05:27)
[2016-12-29] MEDS: Levothyroxine 25 MCG TABLET PO SCH (05:30)
[2016-12-29 06:03] LABS: Basophils # 0.1 K/mcL (0.0-0.2); Basophils % 0.4 %; Hematocrit 38.8 % (35.3-44.9); Hemoglobin 12.3 g/dL (11.5-15.4); Immature Granulocytes % 3.2 % (0-4); Immature Platelets 5.3 % (1.1-6.1); Lymphocytes # 1.7 K/mcL (0.6-4.6); Lymphocytes % 8.6 %; Mean Corpuscular HGB Conc 31.7 g/dL (31.6-35.5); Mean Corpuscular Hemoglobin 27.8 pg (28.0-33.3); Mean Corpuscular Volume 87.8 fL (83.0-100.0); Mean Platelet Volume 10.5 fL (9.4-12.4); Monocytes # 0.7 K/mcL (0.0-1.3); Monocytes % 3.4 %; Neutrophils # 16.2 K/mcL (1.6-8.9); Platelet Count 348 K/mcL (140-400); Red Blood Count 4.42 M/mcL (3.82-4.97); Segmented Neutrophils % 84.4 %
[2016-12-29 07:27] VITALS: BP 126/83
[2016-12-29] MEDS: Beclomethasone 40mcg MDI IH SCH (07:29)
[2016-12-29] MEDS: Lactobacillus 1 EACH CAP.SPRINK PO SCH (09:03)
[2016-12-29] MEDS: hydroCHLOROthiazide 25 MG TABLET PO SCH (09:03)
[2016-12-29] MEDS: amLODIPine 5 MG TABLET PO SCH (09:03)
[2016-12-29] MEDS: Thiamine (B-1) 100 MG TABLET PO SCH (09:03)
[2016-12-29] MEDS: Levofloxacin 750 MG/150 ML 750 MG/150 ML BAG IVPB SCH (09:04)
[2016-12-29] MEDS: Pregabalin 50 MG CAPSULE PO SCH (09:04)
[2016-12-29] MEDS: traMADol 50 MG TABLET PO SCH (09:04)
[2016-12-29] MEDS: Insulin LISPRO 300 UNITS/3 ML VIAL SQ SCH ×2 (09:04→12:57)
--- NOTE | 2016-12-29 13:30 | Discharge Summary ---
<KadensakinaChao - Last Filed: 12/29/16 17:39> Date of Encounter: 12/29/16 Time of Encounter: 09:00 - Discharge Diagnosis (1) Asthma with exacerbation Priority: Primary Status: Acute Comments: Counseled patient again about incentive spirometry and deep breathing, Discontinue IV antibiotic, final blood culture shows no growth to date, Weaned off oxygen today Patient passed 6 minute walk test today Start Symbicort inhaler Continue Albuterol prn Prednisone taper Schedule follow up appointment with PCP and pulmonology for outpatient PFTs Qualifiers: Asthma severity: moderate Asthma persistence: persistent Qualified Code(s ): J45.41 - Moderate persistent asthma with (acute) exacerbation (2) Hypertension Priority: Secondary Status: Chronic Comments: cardiac echo reveals normal ejection fraction, cardiac stress test no evidence of ischemia Continue HCTZ and Norvasc Qualifiers: Hypertension type: essential hypertension Qualified Code(s): I10 - Essential (primary) hypertension (3) Fibromyalgia Priority: Secondary Status: Chronic Comments: Continue outpatient follow up (4) Hypothyroidism Priority: Secondary Status: Acute Comments: Continue home meds Qualifiers: Hypothyroidism type: unspecified Qualified Code(s): E03.9 - Hypothyroidism , unspecified (5) DVT prophylaxis Priority: Primary Status: Acute Comments: Ambulation - Discharge Medications Prescriptions: Budesonide/Formoterol 160/4.5 [Symbicort 160/4.5] 2 puff IH BIDR #1 hfa.aer.ad predniSONE [PredniSONE] See Taper PO DAILY #16 tablet Home Medications: Levothyroxine [Synthroid] 25 mcg PO 0630 09/28/15 [History] Pregabalin [Lyrica] 100 mg PO BID 09/28/15 [History] Tramadol HCl [Ultram] 100 mg PO BID 09/28/15 [History] Multivitamin [Multivitamins] 1 each PO DAILY 08/21/16 [History] amLODIPine [Norvasc] 10 mg PO DAILY 08/21/16 [History] Albuterol Sulfate [Proair Hfa] 2 puff IH Q4H PRN 12/25/16 [History] Amantadine [Symmetrel] 100 mg PO TID 12/25/16 [History] Calcium Carbonate/Vitamin D3 [Calcium 500-Vit D3 200 Tablet] 1 each PO DAILY 05/08 [History] Cholecalciferol (D-3) [Vitamin D] 1,000 unit PO DAILY 12/25/16 [History] Colesevelam HCl [Welchol] 3.75 gm PO BID 12/25/16 [History] DiphenhydraMINE [Benadryl] 12.5 mg PO HS PRN 12/25/16 [History] Guaifenesin [Mucinex] 600 mg PO BID 12/25/16 [History] Ipratropium/Albuterol Neb [Duoneb] 3 ml IH Q4H PRN 12/25/16 [History] [place]-3/Dha/Epa/Fish Oil [Fish Oil 1,000 mg Softgel] 1,000 mg PO DAILY 12/25/16 [History] Simvastatin [Zocor] 10 mg PO HS 12/25/16 [History] hydroCHLOROthiazide [Hydrochlorothiazide] 25 mg PO DAILY 12/25/16 [History] Acetaminophen [Tylenol] 650 mg PO Q6HR PRN tablet 12/29/16 [Rx] Budesonide/Formoterol 160/4.5 [Symbicort 160/4.5] 2 puff IH BIDR #1 hfa.aer.ad 12/29/16 [Rx] predniSONE [PredniSONE] See Taper PO DAILY #16 tablet 12/29/16 [Rx] Allergies/Adverse Reactions: 3 Allergy/AdvReac Type Severity Reaction Status Date / Time ceftriaxone [From Rocephin] Allergy Rash Verified 09/28/15 17:09 Penicillins [PCN] Allergy Rash Verified 09/28/15 17:09 Procedures/tests Complete & Pending: Procedures Performed prior 72 hours Category Date Time Status NM declan perf SPECT multi [NM] Routine Exams 12/28/16 07:00 Taken EV echocardiogram Routine Y 12/28/16 10:15 Completed SP pharm nuclear stress Routine Y 12/28/16 07:00 Completed Date of admission: 12/26/16 17:06 Primary care physician: Frederick Lopez MD Discharging clinician: Chao Lino Anticipated date of discharge: 12/29/16 - Patient Status Disposition: Home, Self-Care Condition: Good Functional capacity at discharge: independent ambulation Overall status at discharge: patient is back to baseline - Discharge Instructions Instructions: Budesonide (By breathing), Asthma (DC), Chronic Obstructive Pulmonary Disease (DC), Chronic Hypertension (DC), Pneumonia (DC) Follow Up With: Frederick Lopez MD [Primary Care Provider] - 01/04/17 4:00 pm Additional Instructions: Continue Prednisone taper as directed Start Symbicort inhaler twice a day. Schedule follow up appointment with [employer] in 1-2 weeks. Follow up with PCP in 1 -2 weeks. - Diet and Activity Activity: increase activity as tolerated Diet: advance to your usual diet Hospital course: Ms. Marcano is a 61 year old female with a PMH of seasonal Asthma, former smoker , and fibromyalgia who presented complaining of shortness of breath for one week. She states that she has progressive symptoms and is now short of breath at both rest and with exertion. She has a history of asthma, admits to episodes of acute exacerbation of her asthma in the spring and in the fall which her inhalers normally relieve, however has not been hospitalized in the past. She has been using her home albuterol inhaler and DuoNeb nebulizer multiple times daily with minimal relief of symptoms. She reported nonproductive cough, chest tightness, and denies any symptoms of fevers, chills , chest pain, nausea, vomiting, leg swelling. She takes daily prednisone 10 mg which she got from her primary care physician earlier this week as well as a Z- Isra which did not help. In the emergency department, vital signs significant for tachycardia at 124, respiratory rate of 30, blood pressure elevated at 152/ 84. Labs show a elevated WBC of 24, lactic acid 3.2. Chest x-ray emergency department showed possible hyperinflation due to COPD, however was negative for acute process. Patient completed 3 days of IV Vanc and 5 days of Levaquin, final blood culture shows no growth to date. Cardiac echo revealed normal ejection fraction and cardiac stress test no evidence of ischemia. Counseled patient again about incentive spirometry and deep breathing, Patient was weaned off oxygen and passed 6 minute walk test. Started Symbicort inhaler, Continue Albuterol prn, Prednisone taper. Schedule follow up appointment with PCP and pulmonology for outpatient PFTs. Continue HCTZ and Norvasc. - Time Spent with Patient Total time spent providing and/or coordinating discharge services: - Constitutional Vitals: Temp Pulse Resp BP Pulse Ox 97.7 F 76 16 126/83 97 12/29/16 07:00 12/29/16 07:00 12/29/16 12:03 12/29/16 07:00 12/29/16 12:03 General appearance: Present: cooperative, A&O X 3, no acute distress, obese, answers questions appropriately - Head Head exam: Present: atraumatic, normocephalic - Eye Eye exam: Present: PERRL, conjuntiva pink, sclera anicteric Pupils: Present: PERRL - Neck Neck exam general surgery: Present: supple, trachea midline. Absent: lymphadenopathy - Respiratory Respiratory exam: Present: CTAB. Absent: accessory muscle use, rales, rhonchi, wheezes - Cardiovascular Cardiovascular exam: Present: RRR, +S1, +S2. Absent: diastolic murmur, gallop, rubs, systolic murmur - GI/Abdominal GI/Abdominal exam: Present: normal bowel sounds, soft, no peritoneal signs. Absent: distended, tenderness - Extremities Exam Extremities exam: Present: warm, radial pulses palpable and symmetrical. Absent : calf tenderness, cyanotic, pedal edema - Back Exam Back exam: Present: normal inspection. Absent: paraspinal tenderness, tenderness - Neurological Exam Neurological exam: Present: CN II-XII intact, oriented X3, no focal deficits. Absent: pronater drift, facial droop, speech deficit - Psychiatric Psychiatric exam: Present: anxious, normal affect - Skin Skin exam: Present: dry, intact, warm <Jeff Victor - Last Filed: 12/29/16 18:51> Date of Encounter: 12/29/16 Procedures/tests Complete & Pending: Procedures Performed prior 72 hours Category Date Time Status NM declan perf SPECT multi [NM] Routine Exams 12/28/16 07:00 Taken EV echocardiogram Routine Y 12/28/16 10:15 Completed SP pharm nuclear stress Routine Y 12/28/16 07:00 Completed Date of admission: 12/26/16 17:06 Primary care physician: Frederick Lopez MD Hospital course: Ms. Marcano is a 61 year old female - Time Spent with Patient Total time spent providing and/or coordinating discharge services: - Constitutional Vitals: Temp Pulse Resp BP Pulse Ox 97.7 F 76 16 126/83 97 12/29/16 07:00 12/29/16 07:00 12/29/16 12:03 12/29/16 07:00 12/29/16 12:03 - Attending Attestation I have seen and examined the patient independently. I have discussed with resident physician Dr Lino regarding the management plan. Agree with the documentation. Patient admitted as asthma exacerbation. Improved after treatment. Patient can tolerate 6 minutes walking without oxygen. No wheezing anymore. Will discharge patient home with Symbicort, albuterol inhaler, and tape down prednisone. Patient will follow-up with PCP and pulmonology as outpatient.
== END 2016-12-29 18:16 | disposition home or self-care (01) | DRG 191 ==
LOC: EMEROO 14:43 → 2NENU 14:43 → SUATTDRO 12-26 17:06
PROVIDERS: ADMIT Internal Medicine; ATTEND Internal Medicine

== ENCOUNTER 2017-03-05 00:49 | Inpatient (IN) ==
[2017-03-05] MEDS ORDERED: methylPREDNISolone 125 MG/2 ML VIAL IVP ONE (03:01)
[2017-03-05] MEDS ORDERED: Ipratropium/Albuterol Neb 3 ML IH ONE (03:01)
[2017-03-05 03:09] LABS: Eosinophils % 0.1 %; Hemoglobin 9.5 g/dL (11.5-15.4); Nucleated Red Blood Cells 0.1 /100 WBC (0); Red Cell Distribution Width 15.1 % (11.5-14.5)
[2017-03-05 03:10] LABS: Basophils # 0.1 K/mcL (0.0-0.2); Basophils % 0.5 %; Hematocrit 29.3 % (35.3-44.9); Immature Granulocytes % 1.5 % (0-4); Lymphocytes # 5.3 K/mcL (0.6-4.6); Lymphocytes % 19.5 %; Mean Corpuscular HGB Conc 32.4 g/dL (31.6-35.5); Mean Corpuscular Hemoglobin 29.3 pg (28.0-33.3); Mean Corpuscular Volume 90.4 fL (83.0-100.0); Mean Platelet Volume 10.1 fL (9.4-12.4); Monocytes % 6.1 %; Platelet Count 451 K/mcL (140-400); Red Blood Count 3.24 M/mcL (3.82-4.97); Segmented Neutrophils % 72.3 %
[2017-03-05 03:11] LABS: Monocytes # 1.7 K/mcL (0.0-1.3); Neutrophils # 19.6 K/mcL (1.6-8.9)
[2017-03-05 03:17] LABS: BUN/Creatinine Ratio 57 (6-26); Blood Urea Nitrogen 49 mg/dL (8-23); Calcium 9.7 mg/dL (8.6-10.3); Carbon Dioxide 27 mEq/L (23-29); Chloride 106 mEq/L (98-107); Glucose 115 mg/dL (70-105); Osmolality,Calculated 308 (280-300); Potassium 3.7 mEq/L (3.5-5.1); Sodium 142 mEq/L (136-145); eGFR For African Americans > 60 (> 60); eGFR For Non-African Americans > 60 (> 60)
[2017-03-05] MEDS ORDERED: Levofloxacin 750 MG/150 ML 750 MG/150 ML BAG IVPB ONE (03:58)
--- NOTE | 2017-03-05 04:03 | Emergency Department Note ---
Disposition Clinical Impression: COPD exacerbation Disposition: Admitted As Inpatient Condition: Good SOB HPI - General Chief Complaint: ED Shortness of Breath/Dyspnea Stated Complaint: weakness, sob, cough Time Seen by Provider: 03/05/17 02:55 Source: patient, EMS Limitations: no limitations Nursing Notes Reviewed: Yes Vital Signs Reviewed: Yes - History of Present Illness Patient presents for evaluation of shortness of breath. Patient had symptoms started approximately 1 week ago. Patient was started earlier in the week on steroids and antibiotics by her primary care physician. Patient was at home with worsening symptoms and decreased ability to walk in her house to perform activities of daily living. Patient is not on home oxygen. Patient has had a cough that has been dry in nature. - Related Data Home Medications Medication Instructions Recorded Confirmed Levothyroxine [Synthroid] 25 mcg PO 0630 09/28/15 03/05/17 Pregabalin [Lyrica] 100 mg PO BID 09/28/15 03/05/17 Tramadol HCl [Ultram] 100 mg PO BID@0900,1600 09/28/15 03/05/17 Multivitamin [Multivitamins] 1 each PO DAILY 08/21/16 03/05/17 amLODIPine [Norvasc] 5 mg PO BID 08/21/16 03/05/17 Albuterol Sulfate [Proair Hfa] 2 puff IH Q4H PRN 12/25/16 03/05/17 Amantadine [Symmetrel] 100 mg PO BID 12/25/16 03/05/17 Calcium Carbonate/Vitamin D3 1 each PO DAILY 12/25/16 03/05/17 [Calcium 500-Vit D3 200 Tablet] Cholecalciferol (D-3) [Vitamin D] 2,000 unit PO DAILY 12/25/16 03/05/17 Colesevelam HCl [Welchol] 3.75 gm PO BID 12/25/16 03/05/17 DiphenhydraMINE [Benadryl] 12.5 mg PO HS PRN 12/25/16 03/05/17 Guaifenesin [Mucinex] 600 mg PO BID 12/25/16 03/05/17 Ipratropium/Albuterol Neb [Duoneb] 3 ml IH Q4H PRN 12/25/16 03/05/17 Simvastatin [Zocor] 10 mg PO HS 12/25/16 03/05/17 hydroCHLOROthiazide 25 mg PO DAILY 12/25/16 03/05/17 [Hydrochlorothiazide] Aspirin/Acetaminophen/Caffeine 1 each PO BID PRN 03/05/17 03/05/17 [Excedrin Migraine Caplet] Loratadine [Allergy Relief] 10 mg PO DAILY 03/05/17 03/05/17 Triamcinolone Acet 0.1% OINT 1 appl TP BID 03/05/17 03/05/17 [Kenalog] predniSONE [PredniSONE] 10 mg PO TAPER 03/05/17 03/05/17 Previous Rx's Medication Instructions Recorded Budesonide/Formoterol 160/4.5 2 puff IH BIDR #1 hfa.aer.ad 12/29/16 [Symbicort 160/4.5] Allergies Allergy/AdvReac Type Severity Reaction Status Date / Time ceftriaxone [From Rocephin] Allergy Severe Anaphylaxis Verified 03/05/17 11:01 Penicillins [PCN] Allergy Severe Anaphylaxis Verified 03/05/17 11:01 Review of Systems: CONSTITUTIONAL: No weight loss, fever, chills, weakness or fatigue. HEENT: Eyes: No visual changes. Ears, Nose, Throat: No hearing loss, difficulty talking or unable to swallow. SKIN: No rash or itching. CARDIOVASCULAR: No chest pain, chest pressure or chest discomfort. No palpitations or edema. RESPIRATORY: Shortness of breath associated cough GASTROINTESTINAL: No anorexia, nausea, vomiting or diarrhea. No abdominal pain or blood. GENITOURINARY: No burning on urination or hematuria. NEUROLOGICAL: No headache, dizziness, syncope, paralysis, ataxia, numbness or tingling in the extremities. No change in bowel or bladder control. MUSCULOSKELETAL: No muscle pain, back pain, joint pain or stiffness. Past Medical History - Past Medical History Medical history: Reports: asthma, COPD, hyperlipidemia, hypertension, other Surgical history: Reports: hysterectomy, other Psychiatric history: Reports: anxiety, depression - Social History Smoking Status: Former smoker Smokeless Tobacco Status: No Alcohol use: Reports: none Drug use: Reports: none Physical Exam General appearance: NAD, conversant Eyes: anicteric sclerae, moist conjunctivae; PERRL HENT: Atraumatic; oropharynx clear with moist mucous membranes and no mucosal ulcerations Neck: Normal inspection; Trachea midline; FROM, supple Lungs: Minimal air movement bilaterally CV: RRR, no MRGs Abdomen: Soft, non-tender; no rebound or gaurding Extremities: No peripheral edema or extremity lymphadenopathy Skin: Normal temperature; no rash, ulcers or lesions Psych: Appropriate mood and affect Neuro: alert and oriented to person, place and time - General Limitations: no limitations General appearance: alert, in no apparent distress Course - Reevaluation(s) Reevaluation #1: After breathing treatments patient has improved air movement however is still minimal. Patient will need admitted for COPD exacerbation failed outpatient management. Patient also did not improve on azithromycin. Patient is given Levaquin during her emergency department stay. - Consultations Consultation #1: Discussed with Dr. Guillaume. Patient accepted for admission. Vital Signs Temperature 98.1 F 03/05/17 01:02 Pulse Rate 99 03/05/17 01:02 Respiratory Rate 16 03/05/17 01:02 Blood Pressure 132/83 03/05/17 01:02 O2 Sat by Pulse Oximetry 96 03/05/17 01:02 Temperature 98.3 F 03/06/17 16:16 Pulse Rate 88 03/06/17 16:16 Respiratory Rate 14 03/06/17 16:16 Blood Pressure 102/64 03/06/17 16:16 O2 Sat by Pulse Oximetry 98 03/06/17 16:16 Oxygen Delivery Oxygen Delivery Nasal Cannula Shortness of Breath/Dyspnea - Medical Records Medical records reviewed: Yes I reviewed the patient's medical records. - Lab Data Lab results reviewed: Yes I reviewed the patient's lab results. Result diagrams: 03/06/17 04:13 03/06/17 02:59 Lab Results 03/05/17 03/05/17 03/05/17 Range/Units 02:54 02:54 02:54 WBC 27.1 H (4.3-11.1) K/mcL RBC 3.24 L (3.82-4.97) M/mcL Hgb 9.5 L (11.5-15.4) g/dL Hct 29.3 L (35.3-44.9) % MCV 90.4 (83.0-100.0) fL MCH 29.3 (28.0-33.3) pg MCHC 32.4 (31.6-35.5) g/dL RDW 15.1 H (11.5-14.5) % Plt Count 451 H (140-400) K/mcL MPV 10.1 (9.4-12.4) fL Immature Gran % 1.5 (0-4) % Seg Neutrophils % 72.3 % Lymphocytes % 19.5 % Monocytes % 6.1 % Eosinophils % 0.1 % Basophils % 0.5 % Neutrophils # 19.6 H (1.6-8.9) K/mcL Lymphocytes # 5.3 H (0.6-4.6) K/mcL Monocytes # 1.7 H (0.0-1.3) K/mcL Eosinophils # 0.0 (0.0-0.6) K/mcL Basophils # 0.1 (0.0-0.2) K/mcL Nucleated RBCs/100 WBC 0.1 H (0) /100 WBC Sodium 142 (136-145) mEq/L Potassium 3.7 (3.5-5.1) mEq/L Chloride 106 (98-107) mEq/L Carbon Dioxide 27 (23-29) mEq/L BUN 49 H (8-23) mg/dL Creatinine 0.86 (0.60-1.20) mg/dL Est GFR ( Amer) > 60 (> 60) Est GFR (Non-Af Amer) > 60 (> 60) BUN/Creatinine Ratio 57 H (6-26) Glucose 115 H (70-105) mg/dL Calculated Osmolality 308 H (280-300) Lactic Acid 1.9 (0.5-2.2) mmol/L Calcium 9.7 (8.6-10.3) mg/dL Troponin I (< 0.04) ng/mL B-Natriuretic Peptide (Less than 100) pg/mL 03/05/17 03/05/17 Range/Units 02:54 02:54 WBC (4.3-11.1) K/mcL RBC (3.82-4.97) M/mcL Hgb (11.5-15.4) g/dL Hct (35.3-44.9) % MCV (83.0-100.0) fL MCH (28.0-33.3) pg MCHC (31.6-35.5) g/dL RDW (11.5-14.5) % Plt Count (140-400) K/mcL MPV (9.4-12.4) fL Immature Gran % (0-4) % Seg Neutrophils % % Lymphocytes % % Monocytes % % Eosinophils % % Basophils % % Neutrophils # (1.6-8.9) K/mcL Lymphocytes # (0.6-4.6) K/mcL Monocytes # (0.0-1.3) K/mcL Eosinophils # (0.0-0.6) K/mcL Basophils # (0.0-0.2) K/mcL Nucleated RBCs/100 WBC (0) /100 WBC Sodium (136-145) mEq/L Potassium (3.5-5.1) mEq/L Chloride (98-107) mEq/L Carbon Dioxide (23-29) mEq/L BUN (8-23) mg/dL Creatinine (0.60-1.20) mg/dL Est GFR ( Amer) (> 60) Est GFR (Non-Af Amer) (> 60) BUN/Creatinine Ratio (6-26) Glucose (70-105) mg/dL Calculated Osmolality (280-300) Lactic Acid (0.5-2.2) mmol/L Calcium (8.6-10.3) mg/dL Troponin I < 0.03 (< 0.04) ng/mL B-Natriuretic Peptide 27 (Less than 100) pg/mL - Radiology Data Radiology results reviewed: Yes I reviewed the patient's radiology results. - EKG Data EKG attestation: Yes I reviewed and interpreted this EKG. EKG results narrative: EKG shows sinus rhythm with ventricular rate of 99. MS interval 130. QRS 2. QTC 413. Patient has no significant ST elevations or depressions. Patient does have lateral T-wave changes that are similar to previous of 12/25/16. Attestation Statement - Attestation Attestation: I examined this patient and my medical decision-making was reviewed with the Resident Physician, Dr. Cantor. I agree with the documented findings, disposition and treatment plan as described except to the extent set forth below. Pt is a 61 yo wf with hx COPD, not oxygen dependent, c/o grad worsening SOB and wheezing. Pt treated as outpt with steroids and Z=kelly with no improvement. Pt arrives with conv dyspnea and c/o worsening SOB with any activity or ambulation. I agree with pt's PE findings as documented. EKG NSR with no acute ischemia, CXR wnl. Labs with leukocytosis, likely secondary to recent steroid use. Remaining labs wnl. Minimal improvement with aerosols, will admit for ongoing resp mgmt. D/W hospitalist.
[2017-03-05] MEDS ORDERED: traMADol 50 MG TABLET PO STA (05:48)
--- NOTE | 2017-03-05 08:56 | Electrocardiograph Report ---
[place] [id number] Test Date: 2017-03-05 Pat Name: Lawanda Marcano Department: 104 Room: [facility] Gender: F Certified Medication Technician: EKP : 1955 Requested By: Barbie Milligan Order Number: [id number] Reading MD: Ronnie Miller MD Measurements Intervals [place] Rate: 99 P: 58 MD: 130 QRS: -29 QRSD: 92 T: 60 QT: 357 QTc: 413 Interpretive Statements SINUS RHYTHM BORDERLINE LEFT AXIS DEVIATION Electronically Signed On 03-05-2017 8:55:08 EST by Ronnie Miller MD
[2017-03-05] MEDS ORDERED: Naloxone 0.4 MG/ML INJ IVP PRN (10:48)
[2017-03-05] MEDS ORDERED: Ondansetron 4 MG/2 ML VIAL IVP PRN (10:48)
[2017-03-05] MEDS ORDERED: Acetaminophen 325 MG TABLET PO PRN (10:48)
[2017-03-05] MEDS ORDERED: Acetaminophen/Aspirin/Caffeine TABLET PO PRN (10:52)
--- NOTE | 2017-03-05 11:01 | Internal Med History&Physical ---
Date of Encounter: 03/05/17 Time of Encounter: 10:00 Assessment and Plan (1) Acute exacerbation of chronic obstructive airways disease Current visit: Yes Status: Acute Patient recently completed an antibiotic course and steroid taper for outpatient management of acute exacerbation of COPD she has failed her outpatient antibiotic regimen and is back admitted to the hospital this time with worsening shortness of breath and fatigue she received IV Solu-Medrol in the ED and was also given breathing treatments with duonebs with resulting improvement in her shortness of breath I will switch her to Levaquin because antibiotic use has been helpful with shortened length of stay in the hospital she does get extremely fatigued and winded on any attempted ambulation. She is also on room air at home but here she is requiring 2 L of milk allowed to maintain her saturations instruct nurses to wean oxygen as tolerated (2) DVT prophylaxis Current visit: Yes Status: Acute Subcutaneous heparin (3) Hypertension Current visit: Yes Status: Chronic Continue to monitor on home medications Qualifiers: Hypertension type: essential hypertension Qualified Code(s): I10 - Essential (primary) hypertension (4) Leucocytosis Current visit: Yes Status: Acute Leukocytosis of approximately 27,000. Most likely due to recent steroid use. She was started on Levaquin without any other source indicator of an active infection repeat CBC with differential in the morning to trend. May need to get additional cultures as needed Qualifiers: Qualified Code(s): D72.829 - Elevated white blood cell count, unspecified Internal Medicine - H&P: HPI Chief complaint: Shortness of breath Admitted From: Emergency Dept Plans for Post Hospital Care: Home History of present illness: Ms. Marcano is a 61 year old female with a past medical history is significant for COPD and emphysema who came in to the ED for evaluation of shortness of breath. Patient states that for the last week she has had a dry cough and worsening shortness of breath for which she sought out patient primary care opinion and was placed on a steroid taper and Z- pack which she has completed and she continues to have symptoms. Today while at home, she found it very difficult to ambulate from one place to another and was getting more winded than usual. Are there any home oxygen however she felt significantly improved when she was placed on oxygen in the ER. She has endorsed subjective chills but no fevers. He denies any chest pain, nausea, vomiting, abdominal pain at this point. She states that she was having significant difficulty in performing activities of daily living and felt very weak and lethargic. She did endorse runny nose, cough cold and congestion which started a week before. According to her she did have some sputum production last week but it cleared with the antibiotics however the shortness of breath and difficulty in breathing continued to persist despite the recent course of antibiotics and steroids hence she decided to come back to the hospital again. Past Med Surg Social Fam HX - Past Medical History Medical history: asthma, COPD, hyperlipidemia, hypertension, other Psychiatric history: anxiety, depression - Past Surgical History Surgical History: hysterectomy, other - Social History Smoking Status: Former smoker Smokeless Tobacco Status: No Alcohol use: none Drug use: none - Family History Mother Living Status: Still Living Hx Family Cardiac Disorders: No Hx Family Respiratory Disorders: Yes Hx Family Cancer: No Hx Family Endocrine Disorder: Yes Hx Family Neuromuscular Disorders: Yes Hx Family Neurologic Disorders: Yes Internal Medicine - H&P: Meds Levothyroxine [Synthroid] 25 mcg PO 0630 09/28/15 [History] Pregabalin [Lyrica] 100 mg PO BID 09/28/15 [History] Tramadol HCl [Ultram] 100 mg PO BID@0900,1600 09/28/15 [History] Multivitamin [Multivitamins] 1 each PO DAILY 08/21/16 [History] amLODIPine [Norvasc] 5 mg PO BID 08/21/16 [History] Albuterol Sulfate [Proair Hfa] 2 puff IH Q4H PRN 12/25/16 [History] Amantadine [Symmetrel] 100 mg PO BID 12/25/16 [History] Calcium Carbonate/Vitamin D3 [Calcium 500-Vit D3 200 Tablet] 1 each PO DAILY 05/08 [History] Cholecalciferol (D-3) [Vitamin D] 2,000 unit PO DAILY 12/25/16 [History] Colesevelam HCl [Welchol] 3.75 gm PO BID 12/25/16 [History] DiphenhydraMINE [Benadryl] 12.5 mg PO HS PRN 12/25/16 [History] Guaifenesin [Mucinex] 600 mg PO BID 12/25/16 [History] Ipratropium/Albuterol Neb [Duoneb] 3 ml IH Q4H PRN 12/25/16 [History] Simvastatin [Zocor] 10 mg PO HS 12/25/16 [History] hydroCHLOROthiazide [Hydrochlorothiazide] 25 mg PO DAILY 12/25/16 [History] Budesonide/Formoterol 160/4.5 [Symbicort 160/4.5] 2 puff IH BIDR #1 hfa.aer.ad 12/29/16 [Rx] Aspirin/Acetaminophen/Caffeine [Excedrin Migraine Caplet] 1 each PO BID PRN 02/08 [History] Loratadine [Allergy Relief] 10 mg PO DAILY 03/05/17 [History] Triamcinolone Acet 0.1% OINT [Kenalog] 1 appl TP BID 03/05/17 [History] predniSONE [PredniSONE] 10 mg PO TAPER 03/05/17 [History] 3 Allergy/AdvReac Type Severity Reaction Status Date / Time ceftriaxone [From Rocephin] Allergy Severe Anaphylaxis Verified 03/05/17 11:01 Penicillins [PCN] Allergy Severe Anaphylaxis Verified 03/05/17 11:01 All Systems PM: A 10-system review of systems was performed and is negative for pertinent findings except as documented above in the HPI. Review of systems: A complete review of systems is inquired and is negative except as HPI - Constitutional Vitals: Temp Pulse Resp BP Pulse Ox 97.8 F 76 17 110/67 95 03/05/17 10:55 03/05/17 10:55 03/05/17 10:55 03/05/17 10:55 03/05/17 10:55 Exam: Moderate discomfort, alert and oriented X3 speak softly with effort - Head Head exam: Present: atraumatic, normocephalic - Eye Eye exam: Present: PERRL, conjuntiva pink, sclera anicteric Pupils: Present: PERRL - Neck Neck exam general surgery: Present: supple, trachea midline. Absent: lymphadenopathy - Respiratory Respiratory exam: Present: prolonged expiratory phase, rhonchi, tachypnea Additional comments: Faint rhonchi heard across both posterior lung forte diffusely - Cardiovascular Cardiovascular exam: Present: +S1, +S2, tachycardia. Absent: JVD, rubs - GI/Abdominal GI/Abdominal exam: Present: normal bowel sounds, soft, no peritoneal signs. Absent: distended, tenderness - Extremities Exam Extremities exam: Present: warm, radial pulses palpable and symmetrical. Absent : calf tenderness, cyanotic, pedal edema - Neurological Exam Neurological exam: Present: CN II-XII intact, oriented X3, no focal deficits. Absent: pronater drift, facial droop, speech deficit Internal Med - H&P Results - Labs CBC & Chem 7: 03/05/17 02:54 03/05/17 02:54 Labs: Leukocytosis with left shift noted - Diagnostic Studies Chest x-ray Status: image reviewed by me Additional comments: Emphysematous COPD changes,
[2017-03-05] MEDS ORDERED: Ipratropium/Albuterol Neb 3 ML IH PRN (11:49)
[2017-03-05] MEDS: traMADol 50 MG TABLET PO SCH (14:20)
[2017-03-05] MEDS: *HR* Heparin 5,000 UNIT/ML VIAL SQ SCH (17:10)
[2017-03-05] MEDS: Pregabalin 50 MG CAPSULE PO SCH (20:23)
[2017-03-05] MEDS: amLODIPine 5 MG TABLET PO SCH (20:23)
[2017-03-06 03:23] LABS: Alanine Aminotransferase 13 Units/L (7-52); Albumin 3.5 g/dL (3.5-5.7); Albumin/Globulin Ratio 1.6 (1.1-2.2); Alkaline Phosphatase 56 Units/L (34-104); Aspartate Amino Transferase 11 Units/L (13-39); BUN/Creatinine Ratio 44 (6-26); Bilirubin,Total 0.2 mg/dL (0.3-1.0); Blood Urea Nitrogen 42 mg/dL (8-23); Carbon Dioxide 28 mEq/L (23-29); Chloride 109 mEq/L (98-107); Globulin 2.2 g/dL (2.4-3.5); Glucose 101 mg/dL (70-105); Osmolality,Calculated 301 (280-300); Potassium 4.4 mEq/L (3.5-5.1); Sodium 140 mEq/L (136-145); Total Protein 5.7 g/dL (6.4-8.9); eGFR For African Americans > 60 (> 60); eGFR For Non-African Americans 59 (> 60)
[2017-03-06 04:22] LABS: Hematocrit 26.3 % (35.3-44.9); Hemoglobin 8.3 g/dL (11.5-15.4); Mean Corpuscular HGB Conc 31.6 g/dL (31.6-35.5); Mean Platelet Volume 10.2 fL (9.4-12.4); Red Cell Distribution Width 15.7 % (11.5-14.5)
[2017-03-06 04:23] LABS: Mean Corpuscular Hemoglobin 29.9 pg (28.0-33.3); Mean Corpuscular Volume 94.6 fL (83.0-100.0); Platelet Count 438 K/mcL (140-400); Red Blood Count 2.78 M/mcL (3.82-4.97)
[2017-03-06] MEDS: Levothyroxine 25 MCG TABLET PO SCH (05:24)
[2017-03-06] MEDS: *HR* Heparin 5,000 UNIT/ML VIAL SQ SCH ×2 (05:24→16:36)
[2017-03-06] MEDS: hydroCHLOROthiazide 25 MG TABLET PO SCH (07:30)
[2017-03-06] MEDS: traMADol 50 MG TABLET PO SCH ×2 (07:30→16:36)
[2017-03-06] MEDS: Pregabalin 50 MG CAPSULE PO SCH ×2 (07:30→19:51)
[2017-03-06] MEDS: predniSONE 20 MG TABLET PO SCH (07:30)
[2017-03-06] MEDS: amLODIPine 5 MG TABLET PO SCH ×2 (07:31→19:51)
[2017-03-06] MEDS: Levofloxacin 750 MG/150 ML 750 MG/150 ML BAG IVPB SCH (07:31)
--- NOTE | 2017-03-06 14:17 | Internal Med Progress Note ---
Date of Encounter: 03/06/17 Time of Encounter: 14:15 - Assessment and plan (1) Acute exacerbation of chronic obstructive airways disease Current Visit: Yes Status: Acute Assessment and plan: Improving. Continue enteral steroids, empiric IV antibiotics, supplemental oxygen as needed. Home oxygen evaluation prior to discharge. Continue inhaled corticosteroids and as needed bronchodilators. Patient will need formal lung function testing as outpatient. (2) Hypertension Current Visit: Yes Status: Chronic Assessment and plan: Blood pressure noted to be well controlled. Continue amlodipine. Qualifiers: Hypertension type: essential hypertension Qualified Code(s): I10 - Essential (primary) hypertension (3) Hypothyroidism Current Visit: Yes Status: Chronic Assessment and plan: Continue levothyroxine. Qualifiers: Hypothyroidism type: unspecified Qualified Code(s): E03.9 - Hypothyroidism , unspecified - Subjective Interval history: Feels better; improving shortness of breath; patient reports declining functional status at home, with exertional dyspnea; has not had formal lung function testing; - Constitutional Vitals: Temp Pulse Resp BP Pulse Ox 98.1 F 75 14 94/57 100 03/06/17 12:02 03/06/17 12:02 03/06/17 12:02 03/06/17 12:02 03/06/17 12:02 General appearance: Present: A&O X 3, answers questions appropriately - Respiratory Respiratory exam: Present: decreased breath sounds (B/L decreased air entry), CTAB. Absent: accessory muscle use, rales, rhonchi, wheezes - Cardiovascular Cardiovascular exam: Present: RRR, +S1, +S2. Absent: diastolic murmur, gallop, rubs, systolic murmur - GI/Abdominal GI/Abdominal exam: Present: normal bowel sounds, soft, no peritoneal signs. Absent: distended, tenderness - Extremities Exam Extremities exam: Present: full ROM, warm, radial pulses palpable and symmetrical. Absent: calf tenderness, cyanotic, pedal edema - Neurological Exam Neurological exam: Present: CN II-XII intact, oriented X3, no focal deficits. Absent: pronater drift, facial droop, speech deficit Internal Medicine: Result - Labs CBC & Chem 7: 03/06/17 04:13 03/06/17 02:59 Labs: Short CBC 03/06/17 Range/Units 04:13 WBC 28.5 H (4.3-11.1) K/mcL Hgb 8.3 L (11.5-15.4) g/dL Hct 26.3 L (35.3-44.9) % Plt Count 438 H (140-400) K/mcL BMP 03/06/17 02:59 Sodium 140 Potassium 4.4 Chloride 109 H Carbon Dioxide 28 BUN 42 H Creatinine 0.96 Glucose 101 Calcium 9.0 Liver Function 03/06/17 Range/Units 02:59 Total Bilirubin 0.2 L (0.3-1.0) mg/dL AST 11 L (13-39) Units/L ALT 13 (7-52) Units/L Alkaline Phosphatase 56 (34-104) Units/L Albumin 3.5 (3.5-5.7) g/dL Consult Discharge Plan - Plan Referrals: Frederick Lopez MD [Primary Care Provider] -
[2017-03-07 04:01] LABS: Basophils # 0.1 K/mcL (0.0-0.2); Basophils % 0.3 %; Eosinophils # 0.2 K/mcL (0.0-0.6); Eosinophils % 0.8 %; Immature Granulocytes % 2.3 % (0-4); Immature Platelets 5.1 % (1.1-6.1); Lymphocytes # 6.4 K/mcL (0.6-4.6); Lymphocytes % 23.4 %; Mean Corpuscular HGB Conc 30.8 g/dL (31.6-35.5); Mean Corpuscular Hemoglobin 29.3 pg (28.0-33.3); Mean Corpuscular Volume 95.2 fL (83.0-100.0); Mean Platelet Volume 10.4 fL (9.4-12.4); Monocytes # 1.4 K/mcL (0.0-1.3); Nucleated Red Blood Cells 0.2 /100 WBC (0); Platelet Count 393 K/mcL (140-400); Red Blood Count 2.73 M/mcL (3.82-4.97); Red Cell Distribution Width 15.8 % (11.5-14.5); Segmented Neutrophils % 68.2 %
[2017-03-07 04:07] LABS: Neutrophils # 18.8 K/mcL (1.6-8.9)
[2017-03-07 04:18] LABS: BUN/Creatinine Ratio 37 (6-26); Blood Urea Nitrogen 31 mg/dL (8-23); Calcium 8.9 mg/dL (8.6-10.3); Carbon Dioxide 27 mEq/L (23-29); Chloride 109 mEq/L (98-107); Glucose 73 mg/dL (70-105); Osmolality,Calculated 295 (280-300); Potassium 3.7 mEq/L (3.5-5.1); Sodium 140 mEq/L (136-145); eGFR For African Americans > 60 (> 60); eGFR For Non-African Americans > 60 (> 60)
[2017-03-07 04:31] LABS: Hypochromasia Present (Not Present); Platelet Estimate Normal (Normal)
[2017-03-07] MEDS: *HR* Heparin 5,000 UNIT/ML VIAL SQ SCH ×2 (05:17→17:42)
[2017-03-07] MEDS: Levothyroxine 25 MCG TABLET PO SCH (05:17)
[2017-03-07] MEDS: hydroCHLOROthiazide 25 MG TABLET PO SCH (07:19)
[2017-03-07] MEDS: traMADol 50 MG TABLET PO SCH ×2 (07:19→16:13)
[2017-03-07] MEDS: Pregabalin 50 MG CAPSULE PO SCH ×2 (07:19→20:03)
[2017-03-07] MEDS: Levofloxacin 750 MG/150 ML 750 MG/150 ML BAG IVPB SCH (07:20)
[2017-03-07] MEDS: predniSONE 20 MG TABLET PO SCH (07:20)
[2017-03-07] MEDS: amLODIPine 5 MG TABLET PO SCH ×2 (07:20→20:03)
[2017-03-07 14:01] LABS: % Iron Saturation 9 % (15-50); Ferritin 15 ng/ml (10-120); Iron 49 mcg/dL (50-170); Transferrin 398 mg/dL (203-362)
--- NOTE | 2017-03-07 14:02 | Internal Med Progress Note ---
Date of Encounter: 03/07/17 Time of Encounter: 13:45 - Assessment and plan (1) Anemia Current Visit: Yes Status: Acute Assessment and plan: Hb noted to be around 11.5 2 months ago, currently declining at 8; check stool for occult blood to r/o Upper GI bleed, as patient reports melena and epigastric pain, takes ASA for pain. Monitor Hb closely, check serum iron profile, Vit B12, Folate levels; will d/w GI for possible EGD; Qualifiers: Anemia type: unspecified type Qualified Code(s): D64.9 - Anemia, unspecified (2) Acute exacerbation of chronic obstructive airways disease Current Visit: Yes Status: Acute Assessment and plan: Improving. Continue enteral steroids, empiric IV antibiotics, supplemental oxygen as needed. Saturating well on room air today. Continue inhaled corticosteroids and as needed bronchodilators. Patient will need formal lung function testing as outpatient. PT/OT evaluation. (3) Hypertension Current Visit: Yes Status: Chronic Assessment and plan: Blood pressure noted to be well controlled. Continue amlodipine. Qualifiers: Hypertension type: essential hypertension Qualified Code(s): I10 - Essential (primary) hypertension (4) Hypothyroidism Current Visit: Yes Status: Chronic Qualifiers: Hypothyroidism type: unspecified Qualified Code(s): E03.9 - Hypothyroidism , unspecified - Subjective Interval history: Feels better with improved shortness of breath, but reports generalized weakness and fatigue; on further questioning, admits to melena few days ago associated with epigastric pain; no nausea, vomiting, hematemesis; - Constitutional Vitals: Temp Pulse Resp BP Pulse Ox 98 F 76 18 118/73 99 03/07/17 09:55 03/07/17 09:55 03/07/17 09:55 03/07/17 09:55 03/07/17 09:55 General appearance: Present: A&O X 3, answers questions appropriately - Respiratory Respiratory exam: Present: CTAB. Absent: accessory muscle use, rales, rhonchi, wheezes - Cardiovascular Cardiovascular exam: Present: RRR, +S1, +S2. Absent: diastolic murmur, gallop, rubs, systolic murmur - GI/Abdominal GI/Abdominal exam: Present: normal bowel sounds, soft, no peritoneal signs. Absent: distended, tenderness - Extremities Exam Extremities exam: Present: full ROM, warm, radial pulses palpable and symmetrical. Absent: calf tenderness, cyanotic, pedal edema Internal Medicine: Result - Labs CBC & Chem 7: 03/07/17 03:49 03/07/17 03:49 Labs: Short CBC 03/07/17 Range/Units 03:49 WBC 27.5 H (4.3-11.1) K/mcL Hgb 8.0 L (11.5-15.4) g/dL Hct 26.0 L (35.3-44.9) % Plt Count 393 (140-400) K/mcL Neutrophils # 18.8 H (1.6-8.9) K/mcL BMP 03/07/17 03:49 Sodium 140 Potassium 3.7 Chloride 109 H Carbon Dioxide 27 BUN 31 H Creatinine 0.84 Glucose 73 Calcium 8.9 Consult Discharge Plan - Plan Referrals: Frederick Lopez MD [Primary Care Provider] -
[2017-03-08] MEDS: Levothyroxine 25 MCG TABLET PO SCH (05:37)
[2017-03-08] MEDS: *HR* Heparin 5,000 UNIT/ML VIAL SQ SCH ×2 (05:37→17:33)
[2017-03-08 06:13] LABS: Hemoglobin 8.2 g/dL (11.5-15.4); Immature Granulocytes % 2.8 % (0-4)
[2017-03-08 06:15] LABS: Basophils # 0.1 K/mcL (0.0-0.2); Basophils % 0.4 %; Eosinophils # 0.2 K/mcL (0.0-0.6); Eosinophils % 0.6 %; Hematocrit 25.5 % (35.3-44.9); Immature Platelets 3.8 % (1.1-6.1); Lymphocytes # 7.2 K/mcL (0.6-4.6); Lymphocytes % 23.2 %; Mean Corpuscular HGB Conc 32.2 g/dL (31.6-35.5); Mean Corpuscular Hemoglobin 30.1 pg (28.0-33.3); Mean Corpuscular Volume 93.8 fL (83.0-100.0); Mean Platelet Volume 10.1 fL (9.4-12.4); Monocytes # 1.7 K/mcL (0.0-1.3); Monocytes % 5.6 %; Neutrophils # 20.8 K/mcL (1.6-8.9); Nucleated Red Blood Cells 0.2 /100 WBC (0); Platelet Count 493 K/mcL (140-400); Red Blood Count 2.72 M/mcL (3.82-4.97); Red Cell Distribution Width 15.9 % (11.5-14.5); Segmented Neutrophils % 67.4 %
[2017-03-08 06:56] LABS: Anisocytosis 1+ (Not Present); Platelet Estimate Increased (Normal); Polychromasia 1+ (Not Present)
[2017-03-08] MEDS: Cyanocobalamin (B-12) 1,000 MCG TABLET PO SCH (09:13)
[2017-03-08] MEDS: predniSONE 20 MG TABLET PO SCH (09:13)
[2017-03-08] MEDS: hydroCHLOROthiazide 25 MG TABLET PO SCH (09:14)
[2017-03-08] MEDS: amLODIPine 5 MG TABLET PO SCH ×2 (09:16→20:42)
[2017-03-08] MEDS: traMADol 50 MG TABLET PO SCH ×2 (09:17→16:14)
[2017-03-08] MEDS: Pregabalin 50 MG CAPSULE PO SCH ×2 (09:17→20:42)
[2017-03-08] MEDS: Levofloxacin 750 MG/150 ML 750 MG/150 ML BAG IVPB SCH (09:22)
[2017-03-08] MEDS ORDERED: *HR* FentaNYL (PF) 100 MCG/2 ML VIAL ONE (12:18)
[2017-03-08] MEDS ORDERED: *HR* Midazolam HCl 5 MG/5 ML VIAL IVP ONE ×2 (12:19→12:42)
[2017-03-08] MEDS ORDERED: Tetracaine/Benzocaine/Butamben 200MG/SPRAY (100SPY/BOT) MM ONE (12:42)
[2017-03-08] MEDS ORDERED: *HR* FentaNYL (PF) 100 MCG/2 ML VIAL IVP ONE (12:42)
[2017-03-08] MEDS ORDERED: Simethicone 40 MG/0.6 ML MLS IR ONE (12:42)
--- NOTE | 2017-03-08 12:43 | Pre-Sedation Evaluation ---
Pre-sedation evaluation - Pre-sedation checklist Date of procedure: 03/08/17 Procedure: Colonoscopy Recent Vitals: Last Vital Signs Temp 97.4 F L 03/08/17 12:32 Pulse 74 03/08/17 12:40 Resp 16 03/08/17 12:40 BP 143/82 03/08/17 12:40 Pulse Ox 99 03/08/17 12:40 H&P (including ROS) documented in medical record: Yes Previous reaction to sedatives/anesthetics: No Dietary Status: NPO after Midnight Dentition: No loose teeth or bridges ASA Classification *see protocol: CLASS III-Severe systemic disease Plan of Care: Pt appropriate candidate for procedure/moderate/conscious sedation , Risks/benefits of procedure/sedation discussed w/ patient/family
--- NOTE | 2017-03-08 14:10 | Gastroenterology Consult Note ---
<Marsha Liu - Last Filed: 03/08/17 14:24> Date of Encounter: 03/08/17 Time of Encounter: 12:30 - Assessment and plan (1) Anemia Current Visit: Yes Status: Acute Assessment and plan: Pt with acute anemia and complaints of abdominal pain. Will proceed with EGD today. She may need colonosocopy as well. Continue PPI. EGD showed gastric and duodenal ulcers, will start carafate and protonix. Will stop excedrine. Repeat EGD in 2 months as outpatient. Qualifiers: Anemia type: unspecified type Qualified Code(s): D64.9 - Anemia, unspecified - Time Spent With Patient Total time spent is greater than 50% in coordination of care (as documented) at patient's floor/unit and/or counseling patient: GI History of Present Illness - Data of Consult Patient: new to practice Consult date: 03/08/17 Requesting Physician: Sol Morataya MD - Consult Narrative Reason for consult: abdominal pain, anemia History of present illness: Ms. Marcaon is a 61 year old female with a past medical history is significant for COPD and emphysema. She presented to the ED with shortness of breath and was admitted with acute COPD exacerbation. She is also complaining of epigastric pain and reports large black BM while in ER. She has drop in Hgb from 12 in December to 8.2 today. She denies any bright red rectal bleeding. She denies constipation, nausea, or vomiting. Colonoscopy: EGD: NSAIDS/ASA: excedrine Anticoagulants: Heparin Past Med Surg Social Fam HX - Past Medical History Medical history: asthma, COPD, hyperlipidemia, hypertension, other Psychiatric history: anxiety, depression - Past Surgical History Surgical History: hysterectomy, other - Social History Smoking Status: Former smoker Smokeless Tobacco Status: No Alcohol use: none Drug use: none - Family History Mother Living Status: Still Living Hx Family Cardiac Disorders: No Hx Family Respiratory Disorders: Yes Hx Family Cancer: No Hx Family Endocrine Disorder: Yes Hx Family Neuromuscular Disorders: Yes Hx Family Neurologic Disorders: Yes Review of Systems: GI: as per [place] GENERAL: denies fever, has some chills EYES: denies yellow discoloration ENT: denies pain with swallowing or difficulty swallowing CARDIO: denies chest pain, palpitations RESP: Shortness of breath with exertion : denies change in color of urine NEURO: denies any weakness HEME: Denies any bruising MS: chronic joint pain, joint swelling or back pain. DERM: denies rash or itching PSYCH: Denies history of anxiety or depression - Constitutional Vitals: Temp Pulse Resp BP Pulse Ox 97.8 F 74 14 100/66 99 03/08/17 13:11 03/08/17 13:11 03/08/17 13:11 03/08/17 13:11 03/08/17 12:45 Exam: CONSTITUTIONAL:~alert, no acute distress.~HEAD:~normocephalic.~EYES:~no jaundice.~NECK:~no obvious swelling.~HEART:~regular rate and rhythm, no murmurs. ~LUNGS:~fairair entry.~ABDOMEN:~non distended, soft, tender to epigastric area, no masses palpable, no organomegaly.~RECTAL EXAM:~Deferred.~EXTREMITIES:~no clubbing, cyanosis or edema.~SKIN:~no stigmata of chronic liver disease.~ NEUROLOGIC:~no obvious focal defect.~~~~ Results - Labs CBC & Chem 7: 03/08/17 05:24 03/07/17 03:49 Labs: Last Result Calcium 8.9 mg/dL (8.6-10.3) 03/07/17 03:49 Iron 49 mcg/dL (50-170) L 03/07/17 13:17 % Saturation 9 % (15-50) L 03/07/17 13:17 Transferrin 398 mg/dL (203-362) H 03/07/17 13:17 Ferritin 15 ng/ml (10-120) 03/07/17 13:17 Troponin I < 0.03 ng/mL (< 0.04) 03/05/17 02:54 Vitamin B12 391 pg/mL (250-1100) 03/07/17 13:17 Folate 23.0 ng/mL (3.0-16.0) H 03/07/17 13:17 Entire Visit Hgb 8.2 g/dL (11.5-15.4) L 03/08/17 05:24 Hct 25.5 % (35.3-44.9) L 03/08/17 05:24 Ferritin 15 ng/ml (10-120) 03/07/17 13:17 Total Bilirubin 0.2 mg/dL (0.3-1.0) L 03/06/17 02:59 AST 11 Units/L (13-39) L 03/06/17 02:59 ALT 13 Units/L (7-52) 03/06/17 02:59 Folate 23.0 ng/mL (3.0-16.0) H 03/07/17 13:17 Consult Discharge Plan - Plan Referrals: Frederick Lopez MD [Primary Care Provider] - <Corine Saldaña - Last Filed: 03/08/17 17:41> Date of Encounter: 03/08/17 - Time Spent With Patient Total time spent is greater than 50% in coordination of care (as documented) at patient's floor/unit and/or counseling patient: GI History of Present Illness - Data of Consult Requesting Physician: Sol Morataya MD - Consult Narrative History of present illness: Ms. Marcano is a 61 year old female - Constitutional Vitals: Temp Pulse Resp BP Pulse Ox 97.8 F 74 14 100/66 99 03/08/17 13:11 03/08/17 13:11 03/08/17 13:11 03/08/17 13:11 03/08/17 12:45 Results - Labs CBC & Chem 7: 03/08/17 05:24 03/07/17 03:49 Labs: Last Result Calcium 8.9 mg/dL (8.6-10.3) 03/07/17 03:49 Iron 49 mcg/dL (50-170) L 03/07/17 13:17 % Saturation 9 % (15-50) L 03/07/17 13:17 Transferrin 398 mg/dL (203-362) H 03/07/17 13:17 Ferritin 15 ng/ml (10-120) 03/07/17 13:17 Troponin I < 0.03 ng/mL (< 0.04) 03/05/17 02:54 Vitamin B12 391 pg/mL (250-1100) 03/07/17 13:17 Folate 23.0 ng/mL (3.0-16.0) H 03/07/17 13:17 Entire Visit Hgb 8.2 g/dL (11.5-15.4) L 03/08/17 05:24 Hct 25.5 % (35.3-44.9) L 03/08/17 05:24 Ferritin 15 ng/ml (10-120) 03/07/17 13:17 Total Bilirubin 0.2 mg/dL (0.3-1.0) L 03/06/17 02:59 AST 11 Units/L (13-39) L 03/06/17 02:59 ALT 13 Units/L (7-52) 03/06/17 02:59 Folate 23.0 ng/mL (3.0-16.0) H 03/07/17 13:17 - Attending Attestation I examined this patient and my medical decision-making was reviewed with the Resident Physician. I agree with the documented findings, disposition and treatment plan as described except to the extent set forth below. Patient with abdominal pain and anemia. Recommendation EGD to rule out peptic ulcer disease. If EGD is negative then she will need a colonoscopy
[2017-03-08] MEDS: Sucralfate 1 GM TABLET PO SCH ×2 (16:15→20:42)
--- NOTE | 2017-03-08 17:01 | Internal Med Progress Note ---
Date of Encounter: 03/08/17 Time of Encounter: 14:00 - Assessment and plan (1) Anemia Current Visit: Yes Status: Acute Assessment and plan: Hb noted to be around 11.5 2 months ago, currently declining at 8; pending stool for occult blood; GI consulted and patient underwent EGD, which showed large nonbleeding gastric and duodenal ulcers, 10 mm in greatest dimension. Continue oral PPI. Avoid aspirin and NSAIDs. Monitor Hb closely, serum iron level noted to be low, started on oral ferrous sulfate supplements. Serum vitamin B-12 and folate levels noted to be normal. Qualifiers: Anemia type: unspecified type Qualified Code(s): D64.9 - Anemia, unspecified (2) Acute exacerbation of chronic obstructive airways disease Current Visit: Yes Status: Acute Assessment and plan: Improving. Continue enteral steroids, empiric IV antibiotics, supplemental oxygen as needed. Saturating well on room air today. Continue inhaled corticosteroids and as needed bronchodilators. Patient will need formal lung function testing as outpatient. PT/OT evaluation noted, noted to have no therapy needs. (3) Hypertension Current Visit: Yes Status: Chronic Qualifiers: Hypertension type: essential hypertension Qualified Code(s): I10 - Essential (primary) hypertension (4) Hypothyroidism Current Visit: Yes Status: Chronic Qualifiers: Hypothyroidism type: unspecified Qualified Code(s): E03.9 - Hypothyroidism , unspecified (5) Leucocytosis Current Visit: Yes Status: Acute Assessment and plan: Noted to have worsening leukocytosis with neutrophilic predominance. Could be secondary to steroids however continues to worsen along with thrombocytosis and anemia. Will consult hematology for further recommendations. Qualifiers: Leukocytosis type: unspecified Qualified Code(s): D72.829 - Elevated white blood cell count, unspecified - Subjective Interval history: Returned from EGD, feels slightly groggy and weak; improved shortness of breath ; no nausea, vomiting, abdominal pain; - Constitutional Vitals: Temp Pulse Resp BP Pulse Ox 97.8 F 74 14 100/66 99 03/08/17 13:11 03/08/17 13:11 03/08/17 13:11 03/08/17 13:11 03/08/17 12:45 General appearance: Present: A&O X 3, answers questions appropriately - Respiratory Respiratory exam: Present: CTAB. Absent: accessory muscle use, rales, rhonchi, wheezes - Cardiovascular Cardiovascular exam: Present: RRR, +S1, +S2. Absent: diastolic murmur, gallop, rubs, systolic murmur - GI/Abdominal GI/Abdominal exam: Present: normal bowel sounds, soft, no peritoneal signs. Absent: distended, tenderness Internal Medicine: Result - Labs CBC & Chem 7: 03/08/17 05:24 03/07/17 03:49 Labs: Short CBC 03/08/17 Range/Units 05:24 WBC 30.9 H* (4.3-11.1) K/mcL Hgb 8.2 L (11.5-15.4) g/dL Hct 25.5 L (35.3-44.9) % Plt Count 493 H (140-400) K/mcL Neutrophils # 20.8 H (1.6-8.9) K/mcL Consult Discharge Plan - Plan Referrals: Frederick Lopez MD [Primary Care Provider] -
--- NOTE | 2017-03-08 17:20 | Oncology Inp Consult Note ---
<Talisha Mendiola L - Last Filed: 03/08/17 17:16> Date of Encounter: 03/08/17 Time of Encounter: 16:00 Assessment and Plan (1) Leucocytosis Status: Acute Assessment and plan: 1. Neutrophil predominant leukocytosis, most likely reactive in nature secondary to steroid use and infection/inflammation. Peripheral smear with pathology review ordered to assess cell morphology. This patient would benefit from continued CBC monitoring and trending on outpatient basis once acute issues resolve, will arrange for hematology follow up with Dr. Damon. Iron deficiency anemia. She would benefit from parental iron replacement with Venofer 200 mg x4 days. B12 and folate normal. EGD shows gastric and duodenal ulcers, she is following GI and plans to follow on outpatient basis. GI discussing colonoscopy, she has had recent colonoscopy within past few years due to bout of colitis and she currently reports no recent melena or hematochezia. Qualifiers: Leukocytosis type: unspecified Qualified Code(s): D72.829 - Elevated white blood cell count, unspecified - Data of Consult Patient: new to practice Consult date: 03/08/17 Requesting Physician: Sol Morataya MD Primary Care Provider: Frederick Lopez MD - Consult Narrative Reason for consult: Leukocytosis History of present illness: Ms. Marcano is a 61 year old female with past medical history significant for necrotizing fasciitis, COPD/Emphysema, fibromyalgia, HTN, hypothyroidism and skin related autoimmune disorder (undiagnosed/in work up). Admitted for worsening respiratory symptoms/COPD exacerbation after failed outpatient treatment with Z-pack/steroids. Oncology consulted for further workup/ recommendation for leukocytosis. Past Med Surg Social Fam HX - Past Medical History Medical history: asthma, COPD, hyperlipidemia, hypertension, other Psychiatric history: anxiety, depression - Past Surgical History Surgical History: hysterectomy, other - Social History Smoking Status: Former smoker Smokeless Tobacco Status: No Alcohol use: none Drug use: none - Family History Mother Living Status: Still Living Hx Family Cardiac Disorders: No Hx Family Respiratory Disorders: Yes Hx Family Cancer: No Hx Family Endocrine Disorder: Yes Hx Family Neuromuscular Disorders: Yes Hx Family Neurologic Disorders: Yes Medications and Allergies Levothyroxine [Synthroid] 25 mcg PO 0630 09/28/15 [History] Pregabalin [Lyrica] 100 mg PO BID 09/28/15 [History] Tramadol HCl [Ultram] 100 mg PO BID@0900,1600 09/28/15 [History] Multivitamin [Multivitamins] 1 each PO DAILY 08/21/16 [History] amLODIPine [Norvasc] 5 mg PO BID 08/21/16 [History] Albuterol Sulfate [Proair Hfa] 2 puff IH Q4H PRN 12/25/16 [History] Amantadine [Symmetrel] 100 mg PO BID 12/25/16 [History] Calcium Carbonate/Vitamin D3 [Calcium 500-Vit D3 200 Tablet] 1 each PO DAILY 05/08 [History] Cholecalciferol (D-3) [Vitamin D] 2,000 unit PO DAILY 12/25/16 [History] Colesevelam HCl [Welchol] 3.75 gm PO BID 12/25/16 [History] DiphenhydraMINE [Benadryl] 12.5 mg PO HS PRN 12/25/16 [History] Guaifenesin [Mucinex] 600 mg PO BID 12/25/16 [History] Ipratropium/Albuterol Neb [Duoneb] 3 ml IH Q4H PRN 12/25/16 [History] Simvastatin [Zocor] 10 mg PO HS 12/25/16 [History] hydroCHLOROthiazide [Hydrochlorothiazide] 25 mg PO DAILY 12/25/16 [History] Budesonide/Formoterol 160/4.5 [Symbicort 160/4.5] 2 puff IH BIDR #1 hfa.aer.ad 12/29/16 [Rx] Aspirin/Acetaminophen/Caffeine [Excedrin Migraine Caplet] 1 each PO BID PRN 02/08 [History] Loratadine [Allergy Relief] 10 mg PO DAILY 03/05/17 [History] Triamcinolone Acet 0.1% OINT [Kenalog] 1 appl TP BID 03/05/17 [History] predniSONE [PredniSONE] 10 mg PO TAPER 03/05/17 [History] 3 Allergy/AdvReac Type Severity Reaction Status Date / Time ceftriaxone [From Rocephin] Allergy Severe Anaphylaxis Verified 03/05/17 11:01 Penicillins [PCN] Allergy Severe Anaphylaxis Verified 03/05/17 11:01 Constitutional: Present: chills, fatigue, fever(s), malaise, weakness. Absent: headache(s), weight loss Cardiovascular: Absent: chest pain, palpitations Respiratory: Present: cough, dyspnea, chest congestion. Absent: hemoptysis Gastrointestinal: Absent: abdominal pain, hematochezia, melena, nausea, vomiting Genitourinary: Absent: dysuria Musculoskeletal: Present: muscle weakness Additional comments: history of necrotizing fasciitis-resolved, receiving steroid tx on outpatient basis for autoimmune skin disorder causing skin thickening/callous formation to bilateral feet/hands Neurological: Absent: dizziness, focal weakness Hematologic/Lymphatic: Absent: easy bleeding, lymphadenopathy Oncology - Exam - Constitutional Vitals: Temp Pulse Resp BP Pulse Ox 97.8 F 74 14 100/66 99 03/08/17 13:11 03/08/17 13:11 03/08/17 13:11 03/08/17 13:11 03/08/17 12:45 General appearance: cooperative, no acute distress, no febrile - Head Head exam: Present: atraumatic - Respiratory Respiratory exam: Present: decreased breath sounds, CTAB - Cardiovascular Cardiovascular exam: Present: RRR, +S1, +S2 - GI/Abdominal GI/Abdominal exam: Present: normal bowel sounds, soft. Absent: tenderness - Extremities Exam Extremities exam: Absent: calf tenderness, pedal edema - Expanded Lower Extremity Exam Lower Leg exam: Absent: swelling - Neurological Exam Neurological exam: Present: alert, oriented X3, strengths equal and symetr throughout. Absent: no focal deficits, facial droop - Psychiatric Psychiatric exam: Present: normal affect, normal mood - Skin Skin exam: Present: normal color, warm Oncology - Results Labs: Short CBC 03/08/17 Range/Units 05:24 WBC 30.9 H* (4.3-11.1) K/mcL Hgb 8.2 L (11.5-15.4) g/dL Hct 25.5 L (35.3-44.9) % Plt Count 493 H (140-400) K/mcL Neutrophils # 20.8 H (1.6-8.9) K/mcL Consult Discharge Plan - Plan Referrals: Frederick Lopez MD [Primary Care Provider] - <Vince Damon - Last Filed: 03/08/17 20:16> Date of Encounter: 03/08/17 - Data of Consult Requesting Physician: Sol Morataya MD Primary Care Provider: Frederick Lopez MD - Consult Narrative History of present illness: Ms. Marcano is a 61 year old female Oncology - Exam - Constitutional Vitals: Temp Pulse Resp BP Pulse Ox 98.4 F 70 16 101/58 97 03/08/17 19:37 03/08/17 19:37 03/08/17 19:37 03/08/17 19:37 03/08/17 19:37 Oncology - Results Labs: Short CBC 03/08/17 Range/Units 05:24 WBC 30.9 H* (4.3-11.1) K/mcL Hgb 8.2 L (11.5-15.4) g/dL Hct 25.5 L (35.3-44.9) % Plt Count 493 H (140-400) K/mcL Neutrophils # 20.8 H (1.6-8.9) K/mcL - Attending Attestation I examined this patient and my medical decision-making was reviewed with the Advanced Practice Nurse. I agree with the documented findings, disposition and treatment plan as described except to the extent set forth below. She appears to have a reactive leukocytosis with elevation in lymphocytes, monocytes and neutrophils. We have ordered a peripheral and LDH to further evaluate. We will otherwise monitor this for now. She also has iron deficiency anemia. Thrombocytosis likely reactive from iron deficiency. We have placed her on venofer 200 mg daily x 4 doses. EGD showed PUD which could be cause. Colonoscopy was 6 years ago for colitis and could be considered for repeat either as an inpatient or outpatient. Will defer to GI and patient preference.
[2017-03-09] MEDS: *HR* Heparin 5,000 UNIT/ML VIAL SQ SCH (05:21)
[2017-03-09] MEDS: Levothyroxine 25 MCG TABLET PO SCH (05:21)
[2017-03-09 06:27] LABS: Eosinophils % 0.9 %; Nucleated Red Blood Cells 0.1 /100 WBC (0); Red Cell Distribution Width 16.1 % (11.5-14.5)
[2017-03-09 06:29] LABS: Basophils # 0.1 K/mcL (0.0-0.2); Basophils % 0.3 %; Eosinophils # 0.3 K/mcL (0.0-0.6); Hematocrit 27.9 % (35.3-44.9); Hemoglobin 8.5 g/dL (11.5-15.4); Immature Granulocytes % 3.1 % (0-4); Lymphocytes # 6.3 K/mcL (0.6-4.6); Lymphocytes % 21.4 %; Mean Corpuscular HGB Conc 30.5 g/dL (31.6-35.5); Mean Corpuscular Hemoglobin 28.7 pg (28.0-33.3); Mean Corpuscular Volume 94.3 fL (83.0-100.0); Mean Platelet Volume 9.7 fL (9.4-12.4); Monocytes # 1.5 K/mcL (0.0-1.3); Monocytes % 5.2 %; Platelet Count 525 K/mcL (140-400); Red Blood Count 2.96 M/mcL (3.82-4.97); Segmented Neutrophils % 69.1 %
[2017-03-09 06:31] LABS: Neutrophils # 20.5 K/mcL (1.6-8.9)
[2017-03-09 06:37] LABS: Anisocytosis 1+ (Not Present); Platelet Estimate Increased (Normal); Polychromasia 1+ (Not Present)
[2017-03-09 06:38] LABS: Toxic Granulation Present (Not Present); Toxic Vacuolation Present (Not Present)
[2017-03-09] MEDS: Cyanocobalamin (B-12) 1,000 MCG TABLET PO SCH (08:41)
[2017-03-09] MEDS: hydroCHLOROthiazide 25 MG TABLET PO SCH (08:41)
[2017-03-09] MEDS: Sucralfate 1 GM TABLET PO SCH ×2 (08:41→11:42)
[2017-03-09] MEDS: amLODIPine 5 MG TABLET PO SCH (08:41)
[2017-03-09] MEDS: traMADol 50 MG TABLET PO SCH (08:41)
[2017-03-09] MEDS: Pregabalin 50 MG CAPSULE PO SCH (08:42)
[2017-03-09] MEDS: Levofloxacin 750 MG/150 ML 750 MG/150 ML BAG IVPB SCH (08:42)
[2017-03-09] MEDS: predniSONE 20 MG TABLET PO SCH (08:42)
[2017-03-09] MEDS ORDERED: Iron Sucrose Complex 200 MG in 0.9 % Sodium Chloride 100 ML IVPB SCH (09:00)
[2017-03-09 10:31] VITALS: BP 115/74
--- NOTE | 2017-03-09 13:30 | Discharge Summary ---
Date of Encounter: 03/09/17 Time of Encounter: 13:26 - Discharge Diagnosis (1) Anemia Priority: Primary Status: Chronic Qualifiers: Anemia type: iron deficiency Iron deficiency anemia type: unspecified iron deficiency Qualified Code(s): D50.9 - Iron deficiency anemia, unspecified (2) Acute exacerbation of chronic obstructive airways disease Priority: Primary Status: Acute (3) Hypertension Priority: Secondary Status: Chronic Qualifiers: Hypertension type: essential hypertension Qualified Code(s): I10 - Essential (primary) hypertension (4) Hypothyroidism Priority: Secondary Status: Chronic Qualifiers: Hypothyroidism type: unspecified Qualified Code(s): E03.9 - Hypothyroidism , unspecified (5) Leucocytosis Priority: Primary Status: Acute Qualifiers: Leukocytosis type: unspecified Qualified Code(s): D72.829 - Elevated white blood cell count, unspecified (6) Gastric ulcer Priority: Primary Status: Chronic Qualifiers: Gastric ulcer chronicity: chronic Gastric ulcer complication status: without hemorrhage or perforation Qualified Code(s): K25.7 - Chronic gastric ulcer without hemorrhage or perforation (7) Duodenal ulcer Priority: Primary Status: Chronic - Discharge Medications Prescriptions: Cyanocobalamin (B-12) [Vitamin B12] 1,000 mcg PO DAILY #10 tablet Ferrous Sulfate 325 mg PO BIDWM #60 tablet Omeprazole [PriLOSEC] 40 mg PO DAILY@0630 #30 capsule. Sucralfate [Carafate] 1 gm PO QIDAC #120 tablet Home Medications: Levothyroxine [Synthroid] 25 mcg PO 0630 09/28/15 [History] Pregabalin [Lyrica] 100 mg PO BID 09/28/15 [History] Tramadol HCl [Ultram] 100 mg PO BID@0900,1600 09/28/15 [History] Multivitamin [Multivitamins] 1 each PO DAILY 08/21/16 [History] amLODIPine [Norvasc] 5 mg PO BID 08/21/16 [History] Albuterol Sulfate [Proair Hfa] 2 puff IH Q4H PRN 12/25/16 [History] Amantadine [Symmetrel] 100 mg PO BID 12/25/16 [History] Calcium Carbonate/Vitamin D3 [Calcium 500-Vit D3 200 Tablet] 1 each PO DAILY 05/08 [History] Cholecalciferol (D-3) [Vitamin D] 2,000 unit PO DAILY 12/25/16 [History] Colesevelam HCl [Welchol] 3.75 gm PO BID 12/25/16 [History] DiphenhydraMINE [Benadryl] 12.5 mg PO HS PRN 12/25/16 [History] Guaifenesin [Mucinex] 600 mg PO BID 12/25/16 [History] Ipratropium/Albuterol Neb [Duoneb] 3 ml IH Q4H PRN 12/25/16 [History] Simvastatin [Zocor] 10 mg PO HS 12/25/16 [History] hydroCHLOROthiazide [Hydrochlorothiazide] 25 mg PO DAILY 12/25/16 [History] Budesonide/Formoterol 160/4.5 [Symbicort 160/4.5] 2 puff IH BIDR #1 hfa.aer.ad 12/29/16 [Rx] Loratadine [Allergy Relief] 10 mg PO DAILY 03/05/17 [History] Triamcinolone Acet 0.1% OINT [Kenalog] 1 appl TP BID 03/05/17 [History] Cyanocobalamin (B-12) [Vitamin B12] 1,000 mcg PO DAILY #10 tablet 03/09/17 [Rx] Ferrous Sulfate 325 mg PO BIDWM #60 tablet 03/09/17 [Rx] Omeprazole [PriLOSEC] 40 mg PO DAILY@0630 #30 capsule. 03/09/17 [Rx] Sucralfate [Carafate] 1 gm PO QIDAC #120 tablet 03/09/17 [Rx] Allergies/Adverse Reactions: 3 Allergy/AdvReac Type Severity Reaction Status Date / Time ceftriaxone [From Rocephin] Allergy Severe Anaphylaxis Verified 03/05/17 11:01 Penicillins [PCN] Allergy Severe Anaphylaxis Verified 03/05/17 11:01 Date of admission: 03/05/17 10:48 Primary care physician: Frederick Lopez MD Consults: 03/07/17 13:41 Consult to Occupational Therapy [CONS] Routine Comment: Evaluate, develop and implement POC Reason for Consult: Weakness Consult to Physical Therapy [CONS] Routine Comment: Evaluate, develop and implement POC Reason for Consult: Weakness 03/08/17 11:52 Consult to Gastroenterology [CONS] Routine Consulting Provider: Gastroenterology Richelle Reason for Consult: Anemia, iron-deficiency; reports melena and epigastric pain, takes PRN ASA Call Completed: Yes Consult to Oncology Hematology [CONS] Routine Consulting Provider: Talisha Mendiola Reason for Consult: Worsening leukocytosis, thrombocytosis, anemia Call Completed: Yes Discharging clinician: Sol Morataya Anticipated date of discharge: 03/09/17 - Patient Status Disposition: Home, Self-Care Condition: Good Functional capacity at discharge: independent ambulation Overall status at discharge: patient is progressing back to baseline - Discharge Instructions Instructions: Sucralfate (By mouth), Omeprazole (By mouth), Vitamin B-12 ( Cyanocobalamin) (By mouth), Ascorbic Acid/Cyanocobalamin/Ferrous Fumarate (By mouth), Gastrointestinal Bleeding (DC), COPD Exacerbation, Tax Accounting Assistant (GEN) Follow Up With: Frederick Lopez MD [Primary Care Provider] - Additional Instructions: F/up with PCP in 1-2 weeks F/up with Hematology in 3-4 weeks F/up with GI in 4-6 weeks - Diet and Activity Activity: resume usual activities as tolerated Diet: low fat, low cholesterol, low salt diet Hospital course: Ms. Marcano is a 61 year old female with the above medical problems, who was admitted with cough, dyspnea and weakness. SHe was treated for acute exacerbation of asthma/COPD, with enteral steroids, bronchodilators, supplemental O2. SHe significantly improved on this regimen and was able to saturate well on room air, did not need home O2. She was noted to have worsening leukocytosis- neutrophil predominance, thrombocytosis along with normocytic anemia. Iron studies revealed low iron stores and she was started on oral ferrous sulfate supplements. Hematology was consulted and WBC change thought to be reactive due to steroid use and infection , and recommended outpatient f/up to monitor labs and to receive IV iron therapy. SHe is otherwise medically stable for discharge. PT/OT evaluation noted , has no pT needs. - Time Spent with Patient Total time spent providing and/or coordinating discharge services: Greater than 30 minutes (45 min) - Constitutional Vitals: Temp Pulse Resp BP Pulse Ox 98.1 F 72 14 115/74 96 03/09/17 10:30 03/09/17 10:30 03/09/17 10:30 03/09/17 10:30 03/09/17 10:30 General appearance: Present: A&O X 3, answers questions appropriately - Cardiovascular Cardiovascular exam: Present: RRR, +S1, +S2. Absent: diastolic murmur, gallop, rubs, systolic murmur
[2017-03-09] MEDS ORDERED: FLUARIX QUAD 2017-18 36MOS UP/PF 0.5 ML SYRINGE IM ONE (14:26)
--- NOTE | 2017-03-09 15:15 | Oncology Inp Progress Note ---
<Talisha Mendiola L - Last Filed: 03/09/17 17:31> Date of Encounter: 03/09/17 Time of Encounter: 12:30 (1) Leucocytosis Status: Acute Assessment and plan: 1. Neutrophil predominant leukocytosis, most likely reactive in nature secondary to steroid use and infection/inflammation. Peripheral smear with pathology review ordered to assess cell morphology, currently pending. This patient would benefit from continued CBC monitoring and trending on outpatient basis once acute issues resolve. Her WBC count is trending down at 29, hgb stable at 8.5 today. Iron deficiency anemia. She received her first dose of Venofer 200 mg this morning and reports she already feels as though her generalized weakness/ malaise is improving. B12 and folate normal. Thrombocytosis likely reactive to iron deficiency. EGD shows gastric and duodenal ulcers, she is following GI and plans to follow on outpatient basis. May consider colonoscopy on outpatient basis. She is medically stable per hospitalist team and planned to discharge home today. We will arrange a follow up with Dr. Damon next week along with Injectafer same day, will call patient with appointments. Qualifiers: Leukocytosis type: unspecified Qualified Code(s): D72.829 - Elevated white blood cell count, unspecified Oncology: Subj Interval history: Ms. Marcano reports she is feeling better overall since receiving her first dose of IV iron, weakness improving. She clinically appears to feel much better today. She denies pain, SOB, s/s bleeding. - Constitutional Vitals: Vital Signs Temp Pulse Resp BP Pulse Ox 03/09/17 10:30 98.1 F 72 14 115/74 96 03/09/17 07:24 98.2 F 67 15 114/64 96 03/09/17 04:00 98.0 F 68 16 106/63 98 03/09/17 00:49 98.5 F 67 16 115/52 98 03/08/17 19:37 98.4 F 70 16 101/58 97 Intake and Output 03/08/17 03/09/17 03/09/17 23:59 07:59 15:59 Intake Total 650 / 650 720 / 720 Output Total 750 / 750 400 / 400 250 / 250 Balance -100 / -100 -400 / -400 470 / 470 Intake: Oral 650 / 650 720 / 720 Output: Urine 750 / 750 400 / 400 250 / 250 Other: Meal Lunch Percent of Meal Consumed 60% General appearance: cooperative, no acute distress, no febrile - Respiratory Respiratory exam: Present: decreased breath sounds, CTAB - Cardiovascular Cardiovascular exam: Present: RRR, +S1, +S2 - GI/Abdominal GI/Abdominal exam: Present: normal bowel sounds, soft. Absent: tenderness - Extremities Exam Extremities exam: Absent: calf tenderness, pedal edema - Neurological Exam Neurological exam: Present: alert, oriented X3, strengths equal and symetr throughout. Absent: no focal deficits - Psychiatric Psychiatric exam: Present: normal affect, normal mood - Skin Skin exam: Present: normal color, warm Oncology: Obj Data - Labs CBC & Chem 7: 03/09/17 05:59 03/07/17 03:49 Labs: Laboratory Results - last 24 hr 03/09/17 03/09/17 05:59 05:59 WBC 29.6 H RBC 2.96 L Hgb 8.5 L Hct 27.9 L MCV 94.3 MCH 28.7 MCHC 30.5 L RDW 16.1 H Plt Count 525 H MPV 9.7 Immature Gran % 3.1 Seg Neutrophils % 69.1 Lymphocytes % 21.4 Monocytes % 5.2 Eosinophils % 0.9 Basophils % 0.3 Neutrophils # 20.5 H Lymphocytes # 6.3 H Monocytes # 1.5 H Eosinophils # 0.3 Basophils # 0.1 Nucleated RBCs/100 WBC 0.1 H Toxic Granulation Present A Toxic Vacuolation Present A Platelet Estimate Increased H Polychromasia 1+ A Anisocytosis 1+ A Smear Path Review See Below Consult Discharge Plan - Plan Instructions: Sucralfate (By mouth), Omeprazole (By mouth), Vitamin B-12 ( Cyanocobalamin) (By mouth), Ascorbic Acid/Cyanocobalamin/Ferrous Fumarate (By mouth), Gastrointestinal Bleeding (DC), COPD Exacerbation, Public Health Specialist (GEN) Additional Instructions: F/up with PCP in 1-2 weeks F/up with Hematology in 3-4 weeks F/up with GI in 4-6 weeks Referrals: Frederick Lopez MD [Primary Care Provider] - Prescriptions: Cyanocobalamin (B-12) [Vitamin B12] 1,000 mcg PO DAILY #10 tablet Ferrous Sulfate 325 mg PO BIDWM #60 tablet Omeprazole [PriLOSEC] 40 mg PO DAILY@0630 #30 capsule.dr Sucralfate [Carafate] 1 gm PO DA #120 tablet <Vince Damon S - Last Filed: 03/09/17 22:00> Date of Encounter: 03/09/17 - Constitutional Vitals: Vital Signs Temp Pulse Resp BP Pulse Ox 03/09/17 10:30 98.1 F 72 14 115/74 96 03/09/17 07:24 98.2 F 67 15 114/64 96 03/09/17 04:00 98.0 F 68 16 106/63 98 03/09/17 00:49 98.5 F 67 16 115/52 98 Intake and Output 03/09/17 03/09/17 03/10/17 08:59 16:59 00:59 Intake Total 720 / 720 Output Total 0 / 0 250 / 250 Balance 0 / 0 470 / 470 Intake: Oral 720 / 720 Output: Urine 0 / 0 250 / 250 Other: Meal Lunch Percent of Meal Consumed 60% Oncology: Obj Data - Labs CBC & Chem 7: 03/09/17 05:59 03/07/17 03:49 Labs: Laboratory Results - last 24 hr 03/09/17 03/09/17 05:59 05:59 WBC 29.6 H RBC 2.96 L Hgb 8.5 L Hct 27.9 L MCV 94.3 MCH 28.7 MCHC 30.5 L RDW 16.1 H Plt Count 525 H MPV 9.7 Immature Gran % 3.1 Seg Neutrophils % 69.1 Lymphocytes % 21.4 Monocytes % 5.2 Eosinophils % 0.9 Basophils % 0.3 Neutrophils # 20.5 H Lymphocytes # 6.3 H Monocytes # 1.5 H Eosinophils # 0.3 Basophils # 0.1 Nucleated RBCs/100 WBC 0.1 H Toxic Granulation Present A Toxic Vacuolation Present A Platelet Estimate Increased H Polychromasia 1+ A Anisocytosis 1+ A Smear Path Review See Below - Attending Attestation I examined this patient and my medical decision-making was reviewed with the Advanced Practice Nurse. I agree with the documented findings, disposition and treatment plan as described except to the extent set forth below. She is feeling much better. Breathing easier. More energetic after iron. Exam unremarkable. We will continue with iron while hospitalized. She will likely be d/c tomorrow , and I will arrange f/u with me next week for continuation of iron and follow her leukocytosis. OK to d/c from our perspective.
== END 2017-03-09 15:52 | disposition home or self-care (01) | DRG 192 ==
LOC: 3NENU 00:49 → EMEROO 00:49 → 3NENU 06:31 → SUATTDRO 10:48
PROVIDERS: ADMIT Internal Medicine; ATTEND Internal Medicine
PROC: ENDOEBX (2017-03-08 14:30)

== ENCOUNTER 2019-02-03 19:07 | Inpatient (IN) ==
[2019-02-03] MEDS ORDERED: Ipratropium/Albuterol Neb 3 ML IH ONE ×2 (19:11→19:12)
[2019-02-03] MEDS ORDERED: methylPREDNISolone 125 MG/2 ML VIAL IVP ONE (19:24)
[2019-02-03 19:50] LABS: Basophils # 0.1 K/mcL (0.0-0.2); Basophils % 0.5 %; Eosinophils # 0.2 K/mcL (0.0-0.6); Eosinophils % 1.3 %; Hematocrit 43.5 % (35.3-44.9); Hemoglobin 14.6 g/dL (11.5-15.4); Immature Granulocytes % 0.4 % (0-4); Lymphocytes # 2.5 K/mcL (0.6-4.6); Lymphocytes % 18.2 %; Mean Corpuscular HGB Conc 33.6 g/dL (31.6-35.5); Mean Corpuscular Hemoglobin 30.3 pg (28.0-33.3); Mean Corpuscular Volume 90.2 fL (83.0-100.0); Mean Platelet Volume 10.2 fL (9.4-12.4); Monocytes % 6.9 %; Platelet Count 376 K/mcL (140-400); Red Blood Count 4.82 M/mcL (3.82-4.97); Red Cell Distribution Width 13.5 % (11.5-14.5); Segmented Neutrophils % 72.7 %; White Blood Count 13.7 K/mcL (4.3-11.1)
[2019-02-03 19:53] LABS: Prothrombin Time 11.2 Seconds (9.4-12.1)
[2019-02-03 20:10] LABS: Alanine Aminotransferase 36 Units/L (7-52); Albumin 4.6 g/dL (3.5-5.7); Albumin/Globulin Ratio 1.9 (1.1-2.2); Alkaline Phosphatase 106 Units/L (34-104); Aspartate Amino Transferase 31 Units/L (13-39); BUN/Creatinine Ratio 14 (6-26); Bilirubin,Indirect 0.4 mg/dL (0.0-1.0); Bilirubin,Total 0.4 mg/dL (0.3-1.0); Blood Urea Nitrogen 10 mg/dL (8-23); Carbon Dioxide 24 mEq/L (23-29); Chloride 107 mEq/L (98-107); Globulin 2.4 g/dL (2.4-3.5); Glucose 101 mg/dL (70-105); Osmolality,Calculated 293 (280-300); Potassium 3.3 mEq/L (3.5-5.1); Sodium 142 mEq/L (136-145); Troponin I < 0.03 ng/mL (< 0.04); eGFR For African Americans > 60 (> 60); eGFR For Non-African Americans > 60 (> 60)
[2019-02-03] MEDS ORDERED: levoFLOXacin 500 MG/100 ML 500 MG/100 ML BAG IVPB ONE (20:17)
[2019-02-04] MEDS ORDERED: Naloxone 0.4 MG/ML INJ IVP PRN (00:53)
[2019-02-04 02:03] LABS: Basophils # 0.1 K/mcL (0.0-0.2); Basophils % 0.3 %; Hematocrit 40.3 % (35.3-44.9); Hemoglobin 13.7 g/dL (11.5-15.4); Immature Granulocytes % 0.8 % (0-4); Lymphocytes # 0.6 K/mcL (0.6-4.6); Lymphocytes % 3.7 %; Mean Corpuscular Hemoglobin 30.6 pg (28.0-33.3); Mean Corpuscular Volume 90.2 fL (83.0-100.0); Mean Platelet Volume 10.3 fL (9.4-12.4); Monocytes # 0.1 K/mcL (0.0-1.3); Monocytes % 0.6 %; Neutrophils # 14.9 K/mcL (1.6-8.9); Platelet Count 368 K/mcL (140-400); Red Blood Count 4.47 M/mcL (3.82-4.97); Red Cell Distribution Width 13.8 % (11.5-14.5); Segmented Neutrophils % 94.6 %; White Blood Count 15.8 K/mcL (4.3-11.1)
[2019-02-04 02:04] LABS: Prothrombin Time 11.9 Seconds (9.4-12.1)
[2019-02-04 02:19] LABS: BUN/Creatinine Ratio 16 (6-26); Blood Urea Nitrogen 12 mg/dL (8-23); Calcium 9.9 mg/dL (8.6-10.3); Carbon Dioxide 22 mEq/L (23-29); Chloride 104 mEq/L (98-107); Glucose 161 mg/dL (70-105); Magnesium 1.7 mg/dL (1.6-2.6); Osmolality,Calculated 289 (280-300); Phosphorous 2.2 mg/dL (2.7-4.5); Potassium 3.6 mEq/L (3.5-5.1); Sodium 138 mEq/L (136-145); eGFR For African Americans > 60 (> 60); eGFR For Non-African Americans > 60 (> 60)
[2019-02-04 02:20] LABS: Bilirubin,Urine Negative (Negative); Blood,Urine Negative (Negative); Clarity,Urine Clear (Clear); Color,Urine Yellow (Yellow); Glucose,Urine (UA) Normal (Normal); Ketones,Urine Negative (Negative); Leukocyte Esterase,Urine Negative (Negative); Nitrite,Urine Negative (Negative); PH,Urine 6.5 pH Units (5.0-8.0); Protein,Urine Trace mg/dL (Neg-Trace); Urobilinogen,Urine Normal (Normal)
[2019-02-04] MEDS: Ipratropium/Albuterol Neb 3 ML IH SCH ×5 (02:58→22:39)
[2019-02-04] MEDS: Levothyroxine 25 MCG TABLET PO SCH (05:18)
[2019-02-04] MEDS: *HR* Heparin 5,000 UNIT/ML VIAL SQ SCH ×2 (05:18→17:19)
[2019-02-04] MEDS ORDERED: Triamcinolone Acet 0.1% CRM 15 GM TUBE TP PRN (07:19)
[2019-02-04] MEDS: Pregabalin 50 MG CAPSULE PO SCH ×2 (08:02→21:01)
[2019-02-04] MEDS: predniSONE 20 MG TABLET PO SCH (08:02)
[2019-02-04] MEDS ORDERED: amLODIPine 5 MG TABLET PO SCH (09:00)
[2019-02-04 09:38] LABS: Adenovirus Not Detected (Not Detect); Bordetella Pertussis Not Detected (Not Detect); Chlamydophila pneumoniae Not Detected (Not Detect); Coronavirus 229E Not Detected (Not Detect); Coronavirus HKU1 Not Detected (Not Detect); Coronavirus NL63 Not Detected (Not Detect); Coronavirus OC43 Not Detected (Not Detect); Human Metapneumovirus Not Detected (Not Detect); Human Rhinovirus/Enterovirus DETECTED (Not Detect); Influenza A Subtype 2009 H1 Not Detected (Not Detect); Influenza A Untypeable Not Detected (Not Detect); Influenza B Not Detected (Not Detect); Mycoplasma pneumoniae Not Detected (Not Detect); Parainfluenza Virus 1 Not Detected (Not Detect); Parainfluenza Virus 2 Not Detected (Not Detect); Parainfluenza Virus 3 Not Detected (Not Detect); Parainfluenza Virus 4 Not Detected (Not Detect); Respiratory Syncytial Virus Not Detected (Not Detect)
[2019-02-04] MEDS ORDERED: Potassium Phosphate 44 MEQ in 0.9 % Sodium Chloride 250 ML IVPB ONE (11:59)
[2019-02-04] MEDS: FLUTICASONE AER SCH (14:11)
[2019-02-04] MEDS: VILANTER AER SCH (14:11)
[2019-02-04] MEDS: UMECLIDIN AER SCH (14:11)
[2019-02-04] MEDS ORDERED: Saline Nasal Spray 44 ML BOTTLE NS PRN (20:40)
[2019-02-04] MEDS ORDERED: levoFLOXacin 500 MG/100 ML 500 MG/100 ML BAG IVPB SCH (21:00)
[2019-02-05] MEDS: Ipratropium/Albuterol Neb 3 ML IH SCH ×4 (03:38→22:14)
[2019-02-05] MEDS: *HR* Heparin 5,000 UNIT/ML VIAL SQ SCH ×2 (06:02→16:41)
[2019-02-05] MEDS: Levothyroxine 25 MCG TABLET PO SCH (06:03)
[2019-02-05 06:36] LABS: Hematocrit 37.8 % (35.3-44.9); Hemoglobin 12.4 g/dL (11.5-15.4); Mean Corpuscular HGB Conc 32.8 g/dL (31.6-35.5); Mean Corpuscular Hemoglobin 30.1 pg (28.0-33.3); Mean Corpuscular Volume 91.7 fL (83.0-100.0); Mean Platelet Volume 10.4 fL (9.4-12.4); Platelet Count 355 K/mcL (140-400); Red Blood Count 4.12 M/mcL (3.82-4.97); Red Cell Distribution Width 14.3 % (11.5-14.5); White Blood Count 17.1 K/mcL (4.3-11.1)
[2019-02-05 06:55] LABS: BUN/Creatinine Ratio 24 (6-26); Blood Urea Nitrogen 25 mg/dL (8-23); Calcium 9.4 mg/dL (8.6-10.3); Carbon Dioxide 23 mEq/L (23-29); Chloride 106 mEq/L (98-107); Glucose 156 mg/dL (70-105); Osmolality,Calculated 304 (280-300); Potassium 3.6 mEq/L (3.5-5.1); Sodium 143 mEq/L (136-145); eGFR For African Americans > 60 (> 60); eGFR For Non-African Americans 54 (> 60)
[2019-02-05] MEDS: UMECLIDIN AER SCH (08:34)
[2019-02-05] MEDS: FLUTICASONE AER SCH (08:34)
[2019-02-05] MEDS: VILANTER AER SCH (08:34)
[2019-02-05] MEDS: Pregabalin 50 MG CAPSULE PO SCH ×2 (08:36→21:32)
[2019-02-05] MEDS: amLODIPine 5 MG TABLET PO SCH (08:37)
[2019-02-05] MEDS: predniSONE 20 MG TABLET PO SCH (08:37)
[2019-02-05] MEDS ORDERED: 0.9 % Sodium Chloride 1,000 ML IVC SCH (11:15)
[2019-02-05] MEDS ORDERED: Aminoglycoside Consult 1 EACH MC ONE (12:49)
[2019-02-05] MEDS: levoFLOXacin 750 MG/150 ML 750 MG/150 ML BAG IVPB SCH (21:31)
[2019-02-06] MEDS ORDERED: levoFLOXacin 750 MG TABLET PO ONE (00:26)
[2019-02-06] MEDS: levoFLOXacin 750 MG/150 ML 750 MG/150 ML BAG IVPB SCH ×2 (00:41→10:09)
[2019-02-06] MEDS: Ipratropium/Albuterol Neb 3 ML IH SCH ×4 (04:10→22:20)
[2019-02-06 05:46] LABS: Hematocrit 39.5 % (35.3-44.9); Hemoglobin 12.7 g/dL (11.5-15.4); Mean Corpuscular HGB Conc 32.2 g/dL (31.6-35.5); Mean Corpuscular Hemoglobin 30.6 pg (28.0-33.3); Mean Corpuscular Volume 95.2 fL (83.0-100.0); Mean Platelet Volume 10.5 fL (9.4-12.4); Platelet Count 362 K/mcL (140-400); Red Blood Count 4.15 M/mcL (3.82-4.97); Red Cell Distribution Width 14.2 % (11.5-14.5); White Blood Count 17.9 K/mcL (4.3-11.1)
[2019-02-06 06:10] LABS: BUN/Creatinine Ratio 26 (6-26); Blood Urea Nitrogen 21 mg/dL (8-23); Calcium 9.7 mg/dL (8.6-10.3); Carbon Dioxide 26 mEq/L (23-29); Chloride 104 mEq/L (98-107); Glucose 99 mg/dL (70-105); Osmolality,Calculated 303 (280-300); Potassium 3.7 mEq/L (3.5-5.1); Sodium 145 mEq/L (136-145); eGFR For African Americans > 60 (> 60); eGFR For Non-African Americans > 60 (> 60)
[2019-02-06] MEDS: *HR* Heparin 5,000 UNIT/ML VIAL SQ SCH ×2 (07:46→17:36)
[2019-02-06] MEDS: Levothyroxine 25 MCG TABLET PO SCH (07:47)
[2019-02-06] MEDS: Pregabalin 50 MG CAPSULE PO SCH ×2 (08:02→23:36)
[2019-02-06] MEDS: amLODIPine 5 MG TABLET PO SCH (08:02)
[2019-02-06] MEDS: predniSONE 20 MG TABLET PO SCH (08:02)
[2019-02-06] MEDS: Budesonide/Formoterol 160/4.5 1 PUFF INH IH SCH ×2 (09:35→22:20)
[2019-02-07] MEDS: Ipratropium/Albuterol Neb 3 ML IH SCH ×2 (04:24→10:59)
[2019-02-07] MEDS: Levothyroxine 25 MCG TABLET PO SCH (05:38)
[2019-02-07] MEDS: *HR* Heparin 5,000 UNIT/ML VIAL SQ SCH (05:38)
[2019-02-07 06:05] LABS: Hematocrit 40.6 % (35.3-44.9); Hemoglobin 13.2 g/dL (11.5-15.4); Mean Corpuscular HGB Conc 32.5 g/dL (31.6-35.5); Mean Corpuscular Hemoglobin 29.7 pg (28.0-33.3); Mean Corpuscular Volume 91.4 fL (83.0-100.0); Mean Platelet Volume 10.2 fL (9.4-12.4); Platelet Count 362 K/mcL (140-400); Red Blood Count 4.44 M/mcL (3.82-4.97); Red Cell Distribution Width 14.1 % (11.5-14.5); White Blood Count 16.1 K/mcL (4.3-11.1)
[2019-02-07 07:07] VITALS: BP 134/76
[2019-02-07] MEDS: predniSONE 20 MG TABLET PO SCH (09:36)
[2019-02-07] MEDS: amLODIPine 5 MG TABLET PO SCH (09:36)
[2019-02-07] MEDS: levoFLOXacin 750 MG/150 ML 750 MG/150 ML BAG IVPB SCH (09:36)
[2019-02-07] MEDS: Pregabalin 50 MG CAPSULE PO SCH (09:36)
[2019-02-07] MEDS: Budesonide/Formoterol 160/4.5 1 PUFF INH IH SCH (10:59)
== END 2019-02-07 12:00 | disposition home or self-care (01) | DRG 871 ==
LOC: EMEROOARM 19:07 → 2ANU 19:07 → SUATTDRO 21:03 → 2ANU 22:23
PROVIDERS: ADMIT Internal Medicine; ATTEND Internal Medicine

== ENCOUNTER 2019-08-09 14:38 | Observation (INO) ==
[2019-08-09] MEDS ORDERED: Isovue-370 500 ML BOTTLE IVP ONE (14:48)
[2019-08-09 15:22] LABS: Prothrombin Time 11.1 Seconds (9.4-12.1)
[2019-08-09 15:24] LABS: Activated Partial Thrombo Time 30.7 Seconds (26.0-36.0)
[2019-08-09 15:27] LABS: Basophils # 0.1 K/mcL (0.0-0.2); Basophils % 1.1 %; Eosinophils # 0.1 K/mcL (0.0-0.6); Eosinophils % 0.8 %; Hematocrit 46.2 % (35.3-44.9); Hemoglobin 14.8 g/dL (11.5-15.4); Immature Granulocytes % 0.7 % (0-4); Lymphocytes # 2.7 K/mcL (0.6-4.6); Lymphocytes % 23.3 %; Mean Corpuscular Hemoglobin 29.7 pg (28.0-33.3); Mean Corpuscular Volume 92.6 fL (83.0-100.0); Mean Platelet Volume 10.1 fL (9.4-12.4); Monocytes # 0.9 K/mcL (0.0-1.3); Monocytes % 8.2 %; Neutrophils # 7.5 K/mcL (1.6-8.9); Platelet Count 343 K/mcL (140-400); Red Blood Count 4.99 M/mcL (3.82-4.97); Red Cell Distribution Width 13.3 % (11.5-14.5); Segmented Neutrophils % 65.9 %; White Blood Count 11.4 K/mcL (4.3-11.1)
[2019-08-09 15:42] LABS: Bacteria,Urine Few per hpf (None-Few); Bilirubin,Urine Negative (Negative); Blood,Urine Negative (Negative); Calcium Oxalate Crystals,Urine Present; Clarity,Urine Turbid (Clear); Color,Urine Yellow (Yellow); Glucose,Urine (UA) Normal (Normal); Hyaline Casts,Urine Many per lpf (None Seen); Ketones,Urine Negative (Negative); Leukocyte Esterase,Urine Trace (Negative); Mucus,Urine Moderate per lpf (None-Few); Nitrite,Urine Negative (Negative); Protein,Urine 100 mg/dL (Neg-Trace); Specific Gravity,Urine 1.027 (1.010-1.025); Squamous Epithelial Cell,Urine Few per hpf (None-Few)
[2019-08-09 15:46] LABS: Troponin I < 0.03 ng/mL (< 0.04)
[2019-08-09] MEDS ORDERED: Nitrofurantoin (BID) 100 MG CAPSULE PO ONE (15:49)
[2019-08-09 15:56] LABS: Alanine Aminotransferase 49 Units/L (7-52); Albumin 5.1 g/dL (3.5-5.7); Alkaline Phosphatase 108 Units/L (34-104); Aspartate Amino Transferase 38 Units/L (13-39); BUN/Creatinine Ratio 17 (6-26); Bilirubin,Direct 0.1 mg/dL (0.0-0.2); Bilirubin,Indirect 0.4 mg/dL (0.0-1.0); Bilirubin,Total 0.5 mg/dL (0.3-1.0); Blood Urea Nitrogen 18 mg/dL (8-23); Calcium 10.7 mg/dL (8.6-10.3); Carbon Dioxide 23 mEq/L (23-29); Chloride 103 mEq/L (98-107); Globulin 2.6 g/dL (2.4-3.5); Glucose 108 mg/dL (70-105); Osmolality,Calculated 292 (280-300); Potassium 3.8 mEq/L (3.5-5.1); Sodium 140 mEq/L (136-145); Total Protein 7.7 g/dL (6.4-8.9); eGFR For African Americans > 60 (> 60); eGFR For Non-African Americans 53 (> 60)
[2019-08-09] MEDS ORDERED: *HR* Promethazine 25 MG/ML VIAL IVP PRN (17:32)
[2019-08-09] MEDS ORDERED: Aspirin 325 MG TABLET PO ONE (18:28)
[2019-08-09] MEDS: Ipratropium/Albuterol Neb 3 ML IH SCH ×2 (20:14→22:17)
[2019-08-09] MEDS: Pregabalin 50 MG CAPSULE PO SCH (20:28)
[2019-08-10 00:35] LABS: BUN/Creatinine Ratio 17 (6-26); Blood Urea Nitrogen 20 mg/dL (8-23); Calcium 9.4 mg/dL (8.6-10.3); Carbon Dioxide 23 mEq/L (23-29); Chloride 106 mEq/L (98-107); Glucose 157 mg/dL (70-105); Osmolality,Calculated 296 (280-300); Potassium 3.4 mEq/L (3.5-5.1); Sodium 140 mEq/L (136-145); eGFR For African Americans 57 (> 60); eGFR For Non-African Americans 47 (> 60)
[2019-08-10 00:36] LABS: Troponin I < 0.03 ng/mL (< 0.04)
[2019-08-10] MEDS: Ipratropium/Albuterol Neb 3 ML IH SCH ×4 (04:11→21:11)
[2019-08-10] MEDS: *HR* Enoxaparin 40 MG/0.4 ML SYRINGE SQ SCH (05:27)
[2019-08-10] MEDS: Levothyroxine 25 MCG TABLET PO SCH (05:27)
[2019-08-10 06:10] LABS: Hematocrit 41.8 % (35.3-44.9); Mean Corpuscular HGB Conc 31.6 g/dL (31.6-35.5); Mean Corpuscular Hemoglobin 29.6 pg (28.0-33.3); Mean Corpuscular Volume 93.7 fL (83.0-100.0); Mean Platelet Volume 10.5 fL (9.4-12.4); Platelet Count 307 K/mcL (140-400); Red Blood Count 4.46 M/mcL (3.82-4.97); Red Cell Distribution Width 13.4 % (11.5-14.5); White Blood Count 10.4 K/mcL (4.3-11.1)
[2019-08-10 06:11] LABS: Hemoglobin 13.2 g/dL (11.5-15.4)
[2019-08-10] MEDS ORDERED: Regadenoson 0.4 MG/5 ML SYRINGE IVP ONE (06:15)
[2019-08-10] MEDS: lisinopriL 10 MG TABLET PO SCH (10:02)
[2019-08-10] MEDS: Pregabalin 50 MG CAPSULE PO SCH ×2 (10:02→20:17)
[2019-08-10] MEDS: Aspirin 81 MG TAB.CHEW PO SCH (10:02)
[2019-08-10] MEDS: amLODIPine 5 MG TABLET PO SCH (10:02)
[2019-08-10] MEDS: Fluticasone Propionate Nasal 50 MCG/SPRAY BOTTLE NS SCH (10:03)
[2019-08-10] MEDS ORDERED: Furosemide 20 MG/2 ML VIAL IVP ONE (13:35)
[2019-08-10] MEDS: Acetaminophen 325 MG TABLET PO PRN (14:18)
[2019-08-11 02:37] LABS: BUN/Creatinine Ratio 20 (6-26); Blood Urea Nitrogen 17 mg/dL (8-23); Calcium 9.7 mg/dL (8.6-10.3); Carbon Dioxide 25 mEq/L (23-29); Chloride 107 mEq/L (98-107); Glucose 132 mg/dL (70-105); Magnesium 1.9 mg/dL (1.6-2.6); Osmolality,Calculated 297 (280-300); Potassium 3.9 mEq/L (3.5-5.1); Sodium 142 mEq/L (136-145); eGFR For African Americans > 60 (> 60); eGFR For Non-African Americans > 60 (> 60)
[2019-08-11] MEDS: Ipratropium/Albuterol Neb 3 ML IH SCH ×2 (03:35→09:36)
[2019-08-11] MEDS: Levothyroxine 25 MCG TABLET PO SCH (06:06)
[2019-08-11] MEDS: *HR* Enoxaparin 40 MG/0.4 ML SYRINGE SQ SCH (06:07)
[2019-08-11] MEDS: Pregabalin 50 MG CAPSULE PO SCH (08:24)
[2019-08-11] MEDS: amLODIPine 5 MG TABLET PO SCH (08:24)
[2019-08-11] MEDS: lisinopriL 10 MG TABLET PO SCH (08:24)
[2019-08-11] MEDS: Aspirin 81 MG TAB.CHEW PO SCH (08:24)
[2019-08-11] MEDS: Acetaminophen 325 MG TABLET PO PRN (08:24)
[2019-08-11] MEDS: Fluticasone Propionate Nasal 50 MCG/SPRAY BOTTLE NS SCH (08:25)
[2019-08-11] MEDS ORDERED: Furosemide 20 MG TABLET PO PRN (09:44)
[2019-08-11 11:24] VITALS: BP 104/63
== END 2019-08-11 12:24 | disposition home or self-care (01) ==
LOC: EMEROOARM 14:38 → 3BNU 14:38
PROVIDERS: ADMIT Pharmacist; ATTEND Pharmacist

== ENCOUNTER 2020-01-21 14:53 | Observation (INO) ==
[2020-01-21] MEDS ORDERED: Isovue-370 500 ML BOTTLE IVP ONE ×3 (16:06→16:22)
[2020-01-21] MEDS ORDERED: 0.9 % Sodium Chloride 1,000 ML IVC ONE (16:19)
[2020-01-21 17:52] LABS: Bacteria,Urine Few per hpf (None-Few); Bilirubin,Urine Negative (Negative); Blood,Urine Trace (Negative); Clarity,Urine Turbid (Clear); Color,Urine Yellow (Yellow); Glucose,Urine (UA) Normal (Normal); Hyaline Casts,Urine Few per lpf (None Seen); Ketones,Urine Negative (Negative); Leukocyte Esterase,Urine Trace (Negative); Mucus,Urine Moderate per lpf (None-Few); Nitrite,Urine Negative (Negative); PH,Urine 6.5 pH Units (5.0-8.0); Protein,Urine 200 mg/dL (Neg-Trace); Specific Gravity,Urine 1.025 (1.010-1.025); Squamous Epithelial Cell,Urine Moderate per hpf (None-Few); WBC,Urine 30-50 per hpf (0-3)
[2020-01-21 19:01] LABS: Basophils # 0.1 K/mcL (0.0-0.2); Basophils % 0.9 %; Eosinophils # 0.2 K/mcL (0.0-0.6); Eosinophils % 2.2 %; Hematocrit 41.6 % (35.3-44.9); Immature Granulocytes % 0.4 % (0-4); Lymphocytes # 2.4 K/mcL (0.6-4.6); Lymphocytes % 21.5 %; Mean Corpuscular HGB Conc 31.5 g/dL (31.6-35.5); Mean Corpuscular Hemoglobin 27.8 pg (28.0-33.3); Mean Corpuscular Volume 88.1 fL (83.0-100.0); Mean Platelet Volume 9.7 fL (9.4-12.4); Monocytes # 1.1 K/mcL (0.0-1.3); Monocytes % 9.7 %; Neutrophils # 7.3 K/mcL (1.6-8.9); Platelet Count 354 K/mcL (140-400); Red Blood Count 4.72 M/mcL (3.82-4.97); Red Cell Distribution Width 13.7 % (11.5-14.5); Segmented Neutrophils % 65.3 %; White Blood Count 11.1 K/mcL (4.3-11.1)
[2020-01-21 19:02] LABS: Hemoglobin 13.1 g/dL (11.5-15.4)
[2020-01-21 19:23] LABS: Alanine Aminotransferase 23 Units/L (7-52); Albumin 4.3 g/dL (3.5-5.7); Albumin/Globulin Ratio 1.5 (1.1-2.2); Alkaline Phosphatase 104 Units/L (34-104); Aspartate Amino Transferase 27 Units/L (13-39); BUN/Creatinine Ratio 9 (6-26); Bilirubin,Direct 0.1 mg/dL (0.0-0.2); Bilirubin,Indirect 0.3 mg/dL (0.0-1.0); Bilirubin,Total 0.4 mg/dL (0.3-1.0); Blood Urea Nitrogen 9 mg/dL (8-23); Calcium 9.9 mg/dL (8.6-10.3); Carbon Dioxide 28 mEq/L (23-29); Chloride 104 mEq/L (98-107); Globulin 2.9 g/dL (2.4-3.5); Glucose 88 mg/dL (70-105); Lipase 33 Units/L (11-82); Osmolality,Calculated 290 (280-300); Potassium 3.2 mEq/L (3.5-5.1); Sodium 141 mEq/L (136-145); Total Protein 7.2 g/dL (6.4-8.9); eGFR For African Americans > 60 (> 60); eGFR For Non-African Americans 53 (> 60)
[2020-01-21] MEDS ORDERED: Pantoprazole 40 MG VIAL IVP ONE (22:44)
[2020-01-21] MEDS ORDERED: Acetaminophen 325 MG TABLET PO PRN (23:25)
[2020-01-21] MEDS ORDERED: Naloxone 0.4 MG/ML INJ IVP PRN (23:25)
[2020-01-21] MEDS ORDERED: Ipratropium/Albuterol Neb 3 ML IH PRN (23:28)
[2020-01-21] MEDS ORDERED: Potassium Chloride Elixir 20 MEQ/15 ML UDC PO ONE (23:52)
[2020-01-22 00:09] LABS: Adenovirus Not Detected (Not Detect); Bordetella Pertussis Not Detected (Not Detect); Chlamydophila pneumoniae Not Detected (Not Detect); Coronavirus 229E Not Detected (Not Detect); Coronavirus HKU1 Not Detected (Not Detect); Coronavirus NL63 Not Detected (Not Detect); Coronavirus OC43 Not Detected (Not Detect); Human Metapneumovirus Not Detected (Not Detect); Human Rhinovirus/Enterovirus Not Detected (Not Detect); Influenza A Subtype 2009 H1 Not Detected (Not Detect); Influenza B Not Detected (Not Detect); Mycoplasma pneumoniae Not Detected (Not Detect); Parainfluenza Virus 1 Not Detected (Not Detect); Parainfluenza Virus 2 Not Detected (Not Detect); Parainfluenza Virus 3 Not Detected (Not Detect); Parainfluenza Virus 4 Not Detected (Not Detect); Respiratory Syncytial Virus Not Detected (Not Detect); SARS-CoV-2 Not Detected (Not Detect)
[2020-01-22] MEDS: Ringers Solution, Lactated 1,000 ML IVC SCH ×2 (01:23→09:44)
[2020-01-22] MEDS: Ondansetron 4 MG/2 ML VIAL IVP PRN ×2 (01:35→14:52)
[2020-01-22 04:28] LABS: Basophils # 0.1 K/mcL (0.0-0.2); Basophils % 0.8 %; Eosinophils # 0.2 K/mcL (0.0-0.6); Eosinophils % 2.2 %; Hemoglobin 12.1 g/dL (11.5-15.4); Immature Granulocytes % 0.3 % (0-4); Lymphocytes # 2.3 K/mcL (0.6-4.6); Lymphocytes % 22.8 %; Mean Corpuscular HGB Conc 31.8 g/dL (31.6-35.5); Mean Corpuscular Hemoglobin 28.4 pg (28.0-33.3); Mean Corpuscular Volume 89.2 fL (83.0-100.0); Mean Platelet Volume 9.9 fL (9.4-12.4); Monocytes % 9.8 %; Neutrophils # 6.4 K/mcL (1.6-8.9); Platelet Count 324 K/mcL (140-400); Red Blood Count 4.26 M/mcL (3.82-4.97); Red Cell Distribution Width 13.8 % (11.5-14.5); Segmented Neutrophils % 64.1 %; White Blood Count 9.9 K/mcL (4.3-11.1)
[2020-01-22 04:44] LABS: INR 1.1; Prothrombin Time 12.8 Seconds (9.4-12.1)
[2020-01-22 04:47] LABS: Alanine Aminotransferase 18 Units/L (7-52); Albumin/Globulin Ratio 1.6 (1.1-2.2); Alkaline Phosphatase 94 Units/L (34-104); Aspartate Amino Transferase 21 Units/L (13-39); BUN/Creatinine Ratio 8 (6-26); Bilirubin,Total 0.4 mg/dL (0.3-1.0); Blood Urea Nitrogen 8 mg/dL (8-23); Calcium 9.3 mg/dL (8.6-10.3); Carbon Dioxide 26 mEq/L (23-29); Chloride 108 mEq/L (98-107); Chol/HDL Ratio 3.1 (0-4.9); Cholesterol 111 mg/dL (< 200); Globulin 2.5 g/dL (2.4-3.5); Glucose 85 mg/dL (70-105); HDL Cholesterol 36 mg/dL (40-59); LDL Cholesterol,Calculated 53 mg/dL (< 100); Magnesium 1.9 mg/dL (1.6-2.6); Osmolality,Calculated 292 (280-300); Phosphorous 3.2 mg/dL (2.7-4.5); Potassium 3.7 mEq/L (3.5-5.1); Sodium 142 mEq/L (136-145); Total Protein 6.5 g/dL (6.4-8.9); Triglycerides 108 mg/dL (< 150); eGFR For African Americans > 60 (> 60); eGFR For Non-African Americans 55 (> 60)
[2020-01-22] MEDS: Levothyroxine 25 MCG TABLET PO SCH (05:39)
[2020-01-22] MEDS: Budesonide/Formoterol 160/4.5 1 PUFF INH IH SCH ×2 (07:29→22:07)
[2020-01-22] MEDS: Pregabalin 50 MG CAPSULE PO SCH ×2 (08:52→21:04)
[2020-01-22] MEDS: Loratadine 10 MG TABLET PO SCH (08:53)
[2020-01-22] MEDS: Aspirin Enteric Coated 81 MG Tablet PO SCH (08:53)
[2020-01-22] MEDS: Pantoprazole 40 MG VIAL IVP SCH (08:56)
[2020-01-22] MEDS: CALCIPOTRIENE TP SCH ×2 (08:57→21:08)
[2020-01-22] MEDS: Fluticasone Propionate Nasal 50 MCG/SPRAY BOTTLE NS SCH (09:45)
[2020-01-22 12:44] LABS: % Iron Saturation 9 % (15-50); Iron 28 mcg/dL (50-170); Transferrin 226 mg/dL (203-362)
[2020-01-22] MEDS ORDERED: Lidocaine -MPF 2% 2 ML VIAL ONE (12:57)
[2020-01-22] MEDS ORDERED: *HR* Propofol 200 MG/20 ML VIAL IVP ONE (12:58)
[2020-01-22] MEDS ORDERED: Fluconazole 200 MG/100 ML 200 MG/100 ML BAG IVPB ONE (14:30)
[2020-01-22] MEDS: *HR* Heparin 5,000 UNIT/ML VIAL SQ SCH (17:34)
[2020-01-23] MEDS: *HR* Heparin 5,000 UNIT/ML VIAL SQ SCH ×2 (06:18→17:10)
[2020-01-23] MEDS: Levothyroxine 25 MCG TABLET PO SCH (06:18)
[2020-01-23] MEDS: Budesonide/Formoterol 160/4.5 1 PUFF INH IH SCH ×2 (07:31→20:31)
[2020-01-23] MEDS ORDERED: Iron Sucrose Complex 400 MG in 0.9 % Sodium Chloride 250 ML IVPB ONE (07:49)
[2020-01-23] MEDS: Aspirin Enteric Coated 81 MG Tablet PO SCH (08:19)
[2020-01-23] MEDS: Pregabalin 50 MG CAPSULE PO SCH ×2 (08:19→21:03)
[2020-01-23] MEDS: Loratadine 10 MG TABLET PO SCH (08:19)
[2020-01-23] MEDS: CALCIPOTRIENE TP SCH ×2 (08:19→21:08)
[2020-01-23] MEDS: Pantoprazole 40 MG VIAL IVP SCH (08:19)
[2020-01-23] MEDS ORDERED: 0.9 % Sodium Chloride 500 ML IVC ONE (12:32)
[2020-01-23] MEDS ORDERED: 0.9 % Sodium Chloride 500 ML ONE (12:35)
[2020-01-23] MEDS ORDERED: MethylPREDNISolone 40 MG/ML VIAL ONE (12:40)
[2020-01-23] MEDS: MethylPREDNISolone 40 MG/ML VIAL IVP ONE ×2 (12:42→12:43)
[2020-01-23] MEDS: Ondansetron 4 MG/2 ML VIAL IVP PRN (12:54)
[2020-01-23 13:04] LABS: Basophils # 0.1 K/mcL (0.0-0.2); Basophils % 1.1 %; Eosinophils # 0.2 K/mcL (0.0-0.6); Eosinophils % 1.7 %; Hematocrit 43.2 % (35.3-44.9); Hemoglobin 13.6 g/dL (11.5-15.4); Immature Granulocytes % 0.4 % (0-4); Lymphocytes % 30.4 %; Mean Corpuscular HGB Conc 31.5 g/dL (31.6-35.5); Mean Corpuscular Hemoglobin 27.9 pg (28.0-33.3); Mean Corpuscular Volume 88.7 fL (83.0-100.0); Monocytes % 7.5 %; Neutrophils # 7.8 K/mcL (1.6-8.9); Platelet Count 379 K/mcL (140-400); Red Blood Count 4.87 M/mcL (3.82-4.97); Red Cell Distribution Width 13.9 % (11.5-14.5); Segmented Neutrophils % 58.9 %; White Blood Count 13.3 K/mcL (4.3-11.1)
[2020-01-23 13:26] LABS: BUN/Creatinine Ratio 7 (6-26); Blood Urea Nitrogen 7 mg/dL (8-23); Carbon Dioxide 26 mEq/L (23-29); Chloride 108 mEq/L (98-107); Glucose 135 mg/dL (70-105); Osmolality,Calculated 294 (280-300); Potassium 3.4 mEq/L (3.5-5.1); Sodium 142 mEq/L (136-145); eGFR For African Americans > 60 (> 60); eGFR For Non-African Americans 55 (> 60)
[2020-01-23 13:27] LABS: Troponin I < 0.03 ng/mL (< 0.04)
[2020-01-23] MEDS: Fluticasone Propionate Nasal 50 MCG/SPRAY BOTTLE NS SCH (14:12)
[2020-01-24 03:10] VITALS: BP 110/56
[2020-01-24] MEDS: *HR* Heparin 5,000 UNIT/ML VIAL SQ SCH (06:51)
[2020-01-24] MEDS: Levothyroxine 25 MCG TABLET PO SCH (06:51)
[2020-01-24] MEDS: Budesonide/Formoterol 160/4.5 1 PUFF INH IH SCH (07:51)
[2020-01-24] MEDS: Loratadine 10 MG TABLET PO SCH (09:31)
[2020-01-24] MEDS: Pregabalin 50 MG CAPSULE PO SCH (09:31)
[2020-01-24] MEDS: Pantoprazole 40 MG VIAL IVP SCH (09:31)
[2020-01-24] MEDS: Aspirin Enteric Coated 81 MG Tablet PO SCH (09:31)
[2020-01-24] MEDS: Fluticasone Propionate Nasal 50 MCG/SPRAY BOTTLE NS SCH (09:33)
[2020-01-24] MEDS ORDERED: Fluconazole 100 MG TABLET PO SCH (10:30)
[2020-01-24] MEDS: CALCIPOTRIENE TP SCH (10:33)
[2020-01-24] MEDS ORDERED: Ondansetron ODT 4 MG TAB.RAPDIS SL PRN (14:07)
[2020-01-25 06:56] LABS: AFP Tumor Marker Non-Pregnant 4 ng/mL (0-9)
[2020-01-25 09:44] LABS: Serine Protease-3 Antibody 2 AU/mL (0-19)
[2020-01-25 14:50] LABS: F-Actin (sm muscle) Ab IgG 5 Units (0-19)
[2020-01-27 08:13] LABS: ANA IgG by ELISA NONE DETECTED (None Detected)
== END 2020-01-24 17:03 | disposition home or self-care (01) ==
LOC: 3ANU 14:53 → EMEROOARM 14:53 → SUATTDRO 01-22 00:32 → 3ANU 01-22 00:52
PROVIDERS: ADMIT Family Medicine; ATTEND Student in an Organized Health Care Education/Training Program

== ENCOUNTER 2021-01-28 06:35 | Observation (INO) ==
[2021-01-28] MEDS ORDERED: Ondansetron 4 MG/2 ML VIAL IVP PRN (07:13)
[2021-01-28] MEDS ORDERED: Ringers Solution, Lactated 1,000 ML IVC SCH (07:15)
[2021-01-28] MEDS ORDERED: Lidocaine -MPF 2% 5 ML VIAL ONE (07:29)
[2021-01-28] MEDS ORDERED: Lidocaine HCL 4 ML Topical Solution (Laryng-O-Jet Kit Sterile Pak) TP ONE (07:29)
[2021-01-28] MEDS ORDERED: *HR* Propofol 200 MG/20 ML VIAL IVP ONE (07:30)
[2021-01-28] MEDS ORDERED: *HR* Succinylcholine 200 MG/10 ML VIAL IVP ONE (07:33)
[2021-01-28] MEDS ORDERED: Ondansetron 4 MG/2 ML VIAL ONE (07:33)
[2021-01-28] MEDS ORDERED: *HR* FentaNYL (PF) 100 MCG/2 ML VIAL ONE ×2 (07:34→09:20)
[2021-01-28] MEDS ORDERED: *HR* EPINEPHrine 1 MG/10 ML SYRINGE INTRATRACH PRN (09:10)
[2021-01-28] MEDS ORDERED: Nitroglycerin 0.4 MG TAB.SUBL SL PRN (10:58)
[2021-01-28] MEDS ORDERED: Ipratropium/Albuterol Neb 3 ML IH PRN ×2 (10:58)
[2021-01-28] MEDS ORDERED: Chloraseptic Spray 177 ML BOTTLE MM PRN (11:05)
[2021-01-28] MEDS ORDERED: Ipratropium/Albuterol Neb 3 ML IH SCH (12:00)
[2021-01-28] MEDS: Ipratropium/Albuterol Neb 3 ML IH SCH ×2 (15:12→20:28)
[2021-01-28] MEDS: rifAMPin 150 MG CAPSULE PO SCH (19:00)
[2021-01-28] MEDS: Budesonide/Formoterol 160/4.5 1 PUFF INH IH SCH (20:28)
[2021-01-28] MEDS: Pregabalin 50 MG CAPSULE PO SCH (20:48)
[2021-01-28] MEDS ORDERED: *HR* LORazepam 1 MG TABLET PO ONE (22:34)
[2021-01-28] MEDS ORDERED: Melatonin 3 MG TABLET PO SCH (22:45)
[2021-01-29] MEDS ORDERED: *HR* Labetalol 20 MG/4 ML SYRINGE IVP ONE (01:58)
[2021-01-29] MEDS: Ipratropium/Albuterol Neb 3 ML IH SCH ×2 (03:39→08:04)
[2021-01-29] MEDS ORDERED: amLODIPine 5 MG TABLET PO STA (03:54)
[2021-01-29 05:06] LABS: Basophils # 0.1 K/mcL (0.0-0.2); Basophils % 0.5 %; Eosinophils # 0.1 K/mcL (0.0-0.6); Eosinophils % 0.5 %; Hemoglobin 13.6 g/dL (11.5-15.4); Immature Granulocytes % 0.5 % (0-4); Lymphocytes # 2.3 K/mcL (0.6-4.6); Lymphocytes % 13.7 %; Mean Corpuscular HGB Conc 31.6 g/dL (31.6-35.5); Mean Corpuscular Hemoglobin 30.2 pg (28.0-33.3); Mean Corpuscular Volume 95.3 fL (83.0-100.0); Mean Platelet Volume 10.5 fL (9.4-12.4); Monocytes # 1.1 K/mcL (0.0-1.3); Monocytes % 6.9 %; Neutrophils # 12.9 K/mcL (1.6-8.9); Platelet Count 328 K/mcL (140-400); Red Blood Count 4.51 M/mcL (3.82-4.97); Red Cell Distribution Width 14.4 % (11.5-14.5); Segmented Neutrophils % 77.9 %; White Blood Count 16.6 K/mcL (4.3-11.1)
[2021-01-29 05:16] LABS: BUN/Creatinine Ratio 15 (6-26); Blood Urea Nitrogen 10 mg/dL (8-23); Calcium 9.6 mg/dL (8.6-10.3); Carbon Dioxide 27 mEq/L (23-29); Chloride 103 mEq/L (98-107); Glucose 186 mg/dL (70-105); Osmolality,Calculated 296 (280-300); Potassium 3.6 mEq/L (3.5-5.1); Sodium 141 mEq/L (136-145); eGFR For African Americans > 60 (> 60); eGFR For Non-African Americans > 60 (> 60)
[2021-01-29] MEDS: rifAMPin 150 MG CAPSULE PO SCH ×2 (07:54→17:22)
[2021-01-29] MEDS: Pregabalin 50 MG CAPSULE PO SCH ×2 (07:56→20:26)
[2021-01-29] MEDS: Budesonide/Formoterol 160/4.5 1 PUFF INH IH SCH ×2 (08:03→20:44)
[2021-01-29] MEDS ORDERED: Furosemide 40 MG/4 ML VIAL IVP ONE (08:10)
[2021-01-29] MEDS ORDERED: amLODIPine 5 MG TABLET PO SCH (09:00)
[2021-01-29] MEDS ORDERED: NON-FORMULARY MEDICATION 1 EACH EACH (Fluticasone/Umeclidin/Vilanter [Trelegy Ellipta 100- IH SCH (09:00)
[2021-01-29] MEDS ORDERED: Fluticasone Propionate Nasal 50 MCG/SPRAY BOTTLE NS SCH (09:00)
[2021-01-29] MEDS ORDERED: Losartan/HCTZ 50-12.5 TABLET PO SCH (09:00)
[2021-01-29] MEDS ORDERED: Loratadine 10 MG TABLET PO SCH (09:00)
[2021-01-29] MEDS ORDERED: Metoprolol XL (24 HR) Succ 50 MG TAB.ER.24H PO SCH ×2 (09:00)
[2021-01-29] MEDS ORDERED: Aspirin Enteric Coated 81 MG Tablet PO SCH (09:00)
[2021-01-29] MEDS ORDERED: *HR* EPINEPHrine 1 MG/10 ML SYRINGE INTRATRACH PRN (13:34)
[2021-01-29] MEDS ORDERED: Ipratropium/Albuterol Neb 3 ML IH PRN (13:34)
[2021-01-29] MEDS ORDERED: Nitroglycerin 0.4 MG TAB.SUBL SL PRN ×2 (13:34→16:10)
[2021-01-29] MEDS ORDERED: Chloraseptic Spray 177 ML BOTTLE MM PRN ×2 (13:34→16:10)
[2021-01-29] MEDS ORDERED: *HR* Heparin 5,000 UNIT/ML VIAL SQ SCH (14:00)
[2021-01-29] MEDS ORDERED: Ipratropium/Albuterol Neb 3 ML IH SCH (16:00)
[2021-01-29] MEDS ORDERED: rifAMPin 150 MG CAPSULE PO SCH (16:30)
[2021-01-29] MEDS: *HR* Heparin 5,000 UNIT/ML VIAL SQ SCH (17:25)
[2021-01-29] MEDS: Ipratropium/Albuterol Neb 3 ML IH PRN ×2 (18:52→22:37)
[2021-01-29] MEDS: Melatonin 3 MG TABLET PO SCH (20:26)
[2021-01-29] MEDS ORDERED: Melatonin 3 MG TABLET PO SCH (21:00)
[2021-01-29] MEDS ORDERED: Pregabalin 50 MG CAPSULE PO SCH (21:00)
[2021-01-29] MEDS ORDERED: Budesonide/Formoterol 160/4.5 1 PUFF INH IH SCH (22:00)
[2021-01-29] MEDS: *HR* LORazepam 1 MG TABLET PO PRN (22:29)
[2021-01-30 07:09] LABS: BUN/Creatinine Ratio 21 (6-26); Blood Urea Nitrogen 16 mg/dL (8-23); Calcium 9.7 mg/dL (8.6-10.3); Carbon Dioxide 30 mEq/L (23-29); Chloride 101 mEq/L (98-107); Glucose 151 mg/dL (70-105); Magnesium 2.2 mg/dL (1.6-2.6); Osmolality,Calculated 294 (280-300); Potassium 3.3 mEq/L (3.5-5.1); Sodium 140 mEq/L (136-145); eGFR For African Americans > 60 (> 60); eGFR For Non-African Americans > 60 (> 60)
[2021-01-30] MEDS: *HR* Heparin 5,000 UNIT/ML VIAL SQ SCH ×2 (07:18→17:15)
[2021-01-30 07:19] LABS: Hematocrit 41.8 % (35.3-44.9); Mean Corpuscular HGB Conc 31.1 g/dL (31.6-35.5); Mean Corpuscular Hemoglobin 29.5 pg (28.0-33.3); Mean Corpuscular Volume 94.8 fL (83.0-100.0); Mean Platelet Volume 10.4 fL (9.4-12.4); Platelet Count 279 K/mcL (140-400); Red Blood Count 4.41 M/mcL (3.82-4.97); Red Cell Distribution Width 14.3 % (11.5-14.5)
[2021-01-30] MEDS: rifAMPin 150 MG CAPSULE PO SCH ×2 (07:56→17:14)
[2021-01-30] MEDS: Budesonide/Formoterol 160/4.5 1 PUFF INH IH SCH (08:50)
[2021-01-30] MEDS ORDERED: Loratadine 10 MG TABLET PO SCH (09:00)
[2021-01-30] MEDS ORDERED: Fluticasone Propionate Nasal 50 MCG/SPRAY BOTTLE NS SCH (09:00)
[2021-01-30] MEDS ORDERED: Metoprolol XL (24 HR) Succ 50 MG TAB.ER.24H PO SCH (09:00)
[2021-01-30] MEDS ORDERED: Losartan/HCTZ 50-12.5 TABLET PO SCH (09:00)
[2021-01-30] MEDS ORDERED: Aspirin Enteric Coated 81 MG Tablet PO SCH (09:00)
[2021-01-30] MEDS: Aspirin Enteric Coated 81 MG Tablet PO SCH (09:03)
[2021-01-30] MEDS: Pregabalin 50 MG CAPSULE PO SCH ×2 (09:03→21:29)
[2021-01-30] MEDS: Losartan/HCTZ 50-12.5 TABLET PO SCH (09:05)
[2021-01-30] MEDS: Metoprolol XL (24 HR) Succ 50 MG TAB.ER.24H PO SCH (09:05)
[2021-01-30] MEDS: Loratadine 10 MG TABLET PO SCH (09:05)
[2021-01-30] MEDS: Fluticasone Propionate Nasal 50 MCG/SPRAY BOTTLE NS SCH (10:37)
[2021-01-30] MEDS: Ipratropium/Albuterol Neb 3 ML IH PRN (12:16)
[2021-01-30] MEDS ORDERED: *HR* Promethazine 25 MG/ML VIAL IM PRN (20:17)
[2021-01-30] MEDS: Melatonin 3 MG TABLET PO SCH (21:29)
[2021-01-30] MEDS: *HR* LORazepam 1 MG TABLET PO PRN (21:33)
[2021-01-31] MEDS: Budesonide/Formoterol 160/4.5 1 PUFF INH IH SCH ×2 (00:36→11:18)
[2021-01-31 05:09] VITALS: TEMP 98.5
[2021-01-31] MEDS: *HR* Heparin 5,000 UNIT/ML VIAL SQ SCH (06:12)
[2021-01-31 07:26] VITALS: BP 139/59; PULSE 90
[2021-01-31] MEDS: rifAMPin 150 MG CAPSULE PO SCH (07:37)
[2021-01-31] MEDS: Loratadine 10 MG TABLET PO SCH (08:13)
[2021-01-31] MEDS: Metoprolol XL (24 HR) Succ 50 MG TAB.ER.24H PO SCH (08:16)
[2021-01-31] MEDS: Aspirin Enteric Coated 81 MG Tablet PO SCH (08:16)
[2021-01-31] MEDS: Pregabalin 50 MG CAPSULE PO SCH (08:16)
[2021-01-31] MEDS: Losartan/HCTZ 50-12.5 TABLET PO SCH (08:16)
[2021-01-31] MEDS: Fluticasone Propionate Nasal 50 MCG/SPRAY BOTTLE NS SCH (08:18)
[2021-01-31 08:49] VITALS: O2SAT 94
== END 2021-01-31 14:17 | disposition home or self-care (01) ==
LOC: SAMDAY 06:35 → INTOOBSV 09:57 → ICNU 09:57 → 2NNU 01-29 23:12
PROVIDERS: ADMIT Internal Medicine Pulmonary Disease; ATTEND Internal Medicine Pulmonary Disease
PROC: ENDOLBX (2021-01-28 07:45)